=== PATIENT | female | born 1940 | race Caucasian/White ===

== ENCOUNTER 2021-03-31 18:40 | Emergency (ER) | payer OTHER ==
--- OUTSIDE RECORDS SUMMARY | 2021-03-31 18:43 | XMS REPORT | Continuity of Care Document ---
:1940 Author Organization [facility] t Address [address] [place] [id number] Care Team Providers Name Role Phone Elder KNOWLES Primary Care Physician Payers Payer Name Policy Type Policy Number Effective Date Expiration Date S ource Problems This patient has no known problems. Allergies, Adverse Reactions, Alerts Allergy Allergy Status Severity Reaction(s) Onset Inactive Treating Comm ents Source Name Type Date Date Clinician nisoldip DA Active U 2019-0 [facility] 00:00: [address] meperidi DA Active U 2019-0 [facility] ne 01-04 00:00: [address] nisoldip DA Active U 2014-0 [facility] 11-03 00:00: [address] meperidi DA Active U 2015-0 [facility] ne 11-03 00:00: [address] Social History Social Habit Start Date Stop Date Quantity Comments Source Sex Assigned At [birth year] [facility] ethodist 00:00:00 00:00:00 Medications This patient has no known medications. Procedures This patient has no known procedures. Plan of Care Planned Activity Planned Date Details Comments Source Future Scheduled 2021-05-23 INFLUENZA VACCINE Mary rubio [facility] 00:00:00 [code = INFLUENZA VACCINE] Future Scheduled 2007 65+ PNEUMOCOCCAL [facility] 00:00:00 VACCINE (1 of 1 - PPSV23) [code = 65+ PNEUMOCOCCAL VACCINE (1 of 1 - PPSV23)] Future Scheduled 1992 SHINGLES VACCINES (#1) Alyx negro [facility] 00:00:00 [code = SHINGLES VACCINES (#1)] Future Scheduled 1954 COVID-19 VACCINE (1) Sujata spence [facility] 00:00:00 [code = COVID-19 VACCINE (1)] Results Test Description Test Time Test Comments Results Result Comments Source - NM MYOCRD SPECT 2019-01-09 Patient Name: R/S MULT 11:01:00 DARLEEN BUCHANAN Unit No: [id number] EXAMS: CPT CODE: [id number] NM MYOCRD SPECT R/S MULT [id number] CLINICAL HISTORY: Bundle branch block. LOCATION: E5 COMPARISON: November 03, 2014 FINDINGS: A Lexiscan stress SPECT myocardial perfusion scan is performed with 10.75 mCi technetium 99m Cardiolite injected during rest and 30.2 mCi injected during stress. SPECT myocardial perfusion images demonstrate fixed mildly decreased activity involving the inferior medial wall without extension into the apex. Apical thinning is noted.. No reversibility is evident. Gated images demonstrate normal wall motion. Left ventricular ejection fraction is 66%. IMPRESSION: 1. No significant abnormalities. LVEF is 66% (previous LVEF was calculated as 50%). at 1101 Reported and signed by: Daniel Johnson MD CC: Salas Kohli Technologist: RT Radha(CA) Transcrpt Date/Tm/Trnsp: 01/09/2019 (1101) [id number] Orig Print D/T: S: 01/09/2019 (1104) [facility] NAME: DARLEEN BUCHANAN [address] [facility] [address] PHYS: [place] [address] : 1940 AGE: 78 SEX: F LOC: ZSimaZNUC PHONE #: [phone] EXAM DATE: 01/04/2019 STATUS: DEP CLI FAX #: [phone] RADIOLOGY NO: PAGE 1 Signed Report
[2021-03-31] MEDS ORDERED: NA CHLORIDE 0.9% 500 ML ONE (20:09)
--- NOTE | 2021-03-31 20:22 | RAD REPORT ---
EXAM DESCRIPTION: US - Extremity Nonvascular Limited - 03/31/2021 8:07 pm CLINICAL HISTORY: Pain;Swelling COMPARISON: URINARY BLADDER dated 02/01/2013; Wrist Right 3 View dated 03/09/2021; Hand Right 3 View d ated 03/09/2021 TECHNIQUE: Real-time sonographic evaluation of the area of interest was performed. FINDINGS: In the area of interest anterior/wrist region there is evidence of significant fluid withi n the tendon sheaths of the carpal tunnel and the other flexor tendons. This may indicate tenosynovit is. Followup nonemergent MR imaging of the wrist would be suggested.
[2021-03-31 20:44] LABS: Absolute Lymphocytes (CBC) 1.5 K/uL (0.7-4.9); Basophils % 0.4 % (0-1.3); Hematocrit 38.9 % (36.0-45.0); Lymphocytes % 20.3 % (15.3-44.8); MPV 9.3 fL (7.6-11.3); RBC Red Blood Cell Count 4.31 M/uL (3.86-4.86)
[2021-03-31 21:03] LABS: Potassium 4.1 mmol/L (3.5-5.1)
[2021-03-31] MEDS ORDERED: LIDOCAINE 1% W/EPI 1:100,000 MDV 20 ML VIAL ONE (21:10)
--- NOTE | 2021-03-31 21:15 | EDPHYS ---
Physician Documentation [facility] Name: Argenis Plata Age: 80 yrs Sex: Female : 1940 Arrival Date: 03/31/2021 Time: 18:43 Bed 20 Private MD: ED Physician Loi Clayton HPI: 03/31 19:43 This 80 yrs old Female presents to ER via Ambulatory with complaints of Hand alice Swelling. 19:43 The patient or guardian reports pain, swelling, tenderness. The complaints affect the alice right hand diffusely, dorsum of right hand. Context: The problem was sustained at an unknown location, resulted from an unknown cause. Onset: The symptoms/episode began/occurred 1 month(s) ago. Modifying factors: The symptoms are alleviated by elevation, holding still, ice/coldpack to affected area, the symptoms are aggravated by movement, dependent position. Associated signs and symptoms: The patient has no apparent associated signs or symptoms. Severity of symptoms: At their worst the symptoms were mild, moderate, in the emergency department the symptoms are unchanged. The patient has not experienced similar symptoms in the past. Historical: - Allergies: 18:49 Demerol; ak2 18:49 Sulfa (Sulfonamide Antibiotics); ak2 - PMHx: 21:53 RLS; lc1 - Immunization history:: Adult Immunizations up to date. - Social history:: Smoking status: unknown. - Family history:: not pertinent. ROS: 19:43 Constitutional: Negative for fever, chills, and weight loss, Eyes: Negative for injury, alice pain, redness, and discharge, ENT: Negative for injury, pain, and discharge, Neck: Negative for injury, pain, and swelling, Cardiovascular: Negative for chest pain, palpitations, and edema, Respiratory: Negative for shortness of breath, cough, wheezing, and pleuritic chest pain, Abdomen/GI: Negative for abdominal pain, nausea, vomiting, diarrhea, and constipation, Back: Negative for injury and pain, : Negative for injury, bleeding, discharge, and swelling, Skin: Negative for injury, rash, and discoloration, Neuro: Negative for headache, weakness, numbness, tingling, and seizure, Psych: Negative for depression, anxiety, suicide ideation, homicidal ideation, and hallucinations, Allergy/Immunology: Negative for hives, rash, and allergies, Endocrine: Negative for neck swelling, polydipsia, polyuria, polyphagia, and marked weight changes, Hematologic/Lymphatic: Negative for swollen nodes, abnormal bleeding, and unusual bruising. 19:43 MS/extremity: Positive for pain, swelling, tenderness, of the dorsum of right hand. Exam: 19:43 Constitutional: This is a well developed, well nourished patient who is awake, alert, alice and in no acute distress. Head/Face: Normocephalic, atraumatic. Eyes: Pupils equal round and reactive to light, extra-ocular motions intact. Lids and lashes normal. Conjunctiva and sclera are non-icteric and not injected. Cornea within normal limits. Periorbital areas with no swelling, redness, or edema. ENT: Nares patent. No nasal discharge, no septal abnormalities noted. Tympanic membranes are normal and external auditory canals are clear. Oropharynx with no redness, swelling, or masses, exudates, or evidence of obstruction, uvula midline. Mucous membranes moist. Neck: Trachea midline, no thyromegaly or masses palpated, and no cervical lymphadenopathy. Supple, full range of motion without nuchal rigidity, or vertebral point tenderness. No Meningismus. Chest/axilla: Normal chest wall appearance and motion. Nontender with no deformity. No lesions are appreciated. Cardiovascular: Regular rate and rhythm with a normal S1 and S2. No gallops, murmurs, or rubs. Normal PMI, no JVD. No pulse deficits. Respiratory: Lungs have equal breath sounds bilaterally, clear to auscultation and percussion. No rales, rhonchi or wheezes noted. No increased work of breathing, no retractions or nasal flaring. Abdomen/GI: Soft, non-tender, with normal bowel sounds. No distension or tympany. No guarding or rebound. No evidence of tenderness throughout. Back: No spinal tenderness. No costovertebral tenderness. Full range of motion. Female : Normal external genitalia. Skin: Warm, dry with normal turgor. Normal color with no rashes, no lesions, and no evidence of cellulitis. Neuro: Awake and alert, GCS 15, oriented to person, place, time, and situation. Cranial nerves II-XII grossly intact. Motor strength 5/5 in all extremities. Sensory grossly intact. Cerebellar exam normal. Normal gait. Psych: Awake, alert, with orientation to person, place and time. Behavior, mood, and affect are within normal limits. 19:43 Musculoskeletal/extremity: Circulation is intact in all extremities. Sensation intact. Compartment Syndrome exam of affected extremity: is normal. Vital Signs: 18:47 BP 167 / 57; Pulse 71; Resp 20; Temp 98.3; Pulse Ox 100% ; Weight 59.87 kg; Height 5 ak2 ft. 5 in. (165.10 cm); 20:30 BP 136 / 85; Pulse 63; Resp 18; Pulse Ox 100% on R/A; lc1 21:00 BP 161 / 68; Pulse 59; Resp 18; Pulse Ox 100% on R/A; lc1 18:47 Body Mass Index 21.97 (59.87 kg, 165.10 cm) ak2 Procedures: 20:40 Performed aspirationof a ganglion cyst, sterile prep, dressed, fluid sent to lab for [facility] appropriate studies. MDM: 18:59 Patient medically screened. jr8 19:53 Differential diagnosis: closed fracture, contusion, tendonitis. Data reviewed: vital alice signs, nurses notes, lab test result(s), radiologic studies, plain films, ultrasound. Data interpreted: ramp jockey: not applicable for this patient encounter. rate is 71 beats/min, rhythm is regular, Pulse oximetry: on room air is 100 %. Test interpretation: by ED physician or midlevel provider: plain radiologic studies. Counseling: I had a detailed discussion with the patient and/or guardian regarding: the historical points, exam findings, and any diagnostic results supporting the discharge/admit diagnosis, lab results, radiology results, the need for outpatient follow up, for definitive care, a hand specialist. 03/31 19:38 Order name: CBC with Diff; Complete Time: 20:46 [facility] 03/31 19:38 Order name: Chem 7 [facility] 03/31 20:51 Order name: Body Fluid Culture [facility] 03/31 20:51 Order name: Body Fluid Cell Count [facility] 03/31 20:51 Order name: Body Fluid Crystals [facility] 03/31 19:38 Order name: US Extrmty Nonvasular Limited; Complete Time: 20:46 [facility] 03/31 20:37 Order name: Dressing - Wound; Complete Time: 20:52 [facility] 03/31 20:37 Order name: Gloves, Sterile; Complete Time: 20:52 [facility] 03/31 20:37 Order name: Setup Suture Tray; Complete Time: 21:00 [facility] Administered Medications: 20:35 Drug: NS 0.9% 500 ml Route: IV; Rate: bolus; Site: left forearm; 1 21:33 Follow up: IV Status: Completed infusion; IV Intake: 500ml [facility] 20:51 Drug: Lidocaine-Epinephrine -1%: (1:100,000) 5 ml Volume: 20 ml; Route: Infiltration; [facility] 21:28 Drug: Doxycycline 200 mg Route: PO; 1 21:32 Follow up: Response: No adverse reaction [facility] 21:30 Drug: Ancef (cefazolin) 1 grams Route: IVPB; Site: left forearm; 1 21:37 Follow up: IV Status: Completed infusion [facility] Disposition: 03/31/21 21:14 Discharged to Home. Impression: Ganglion, right hand - infected/aspirated, Cellulitis and acute lymphangitis of other parts of limb. - Condition is Stable. - Discharge Instructions: Ganglion Cyst, Cellulitis, Adult, [id number]. - Prescriptions for Keflex 500 mg Oral Capsule - take 1 capsule by ORAL route every 6 hours for 10 days; 40 capsule. Doxycycline Hyclate 100 mg Oral Tablet - take 1 tablet by ORAL route every 12 hours; 20 tablet. Motrin IB 200 mg Oral Tablet - take 2 tablet by ORAL route every 6 hours As needed as needed with food; 30 tablet. - Medication Reconciliation Form, Thank You Letter, Antibiotic Education, Prescription Opioid Use form. - Follow up: Daniel Varela; When: 1 - 2 days; Reason: Recheck today's complaints, Continuance of care, Re-evaluation by your physician. - Problem is new. - Symptoms have improved. Signatures: Dispatcher [employer] EDMS Loi Clayton MD MD cha Calhoun, Lisa lc1 Leandro Duffy PA PA jr8 Malcaba, Joseph, RN RN jm8 Fredy Bolton2 Corrections: (The following items were deleted from the chart) 21:15 20:51 Gram Stain ordered. EDMS EDMS 21:54 21:14 03/31/2021 21:14 Discharged to Home. Impression: Ganglion, right hand - lc1 infected/aspirated; Cellulitis and acute lymphangitis of other parts of limb. Condition is Stable. Discharge Instructions: Ganglion Cyst, Cellulitis, Adult, [id number]. Prescriptions for Keflex 500 mg Oral Capsule - take 1 capsule by ORAL route every 6 hours for 10 days; 40 capsule, Doxycycline Hyclate 100 mg Oral Tablet - take 1 tablet by ORAL route every 12 hours; 20 tablet, Motrin IB 200 mg Oral Tablet - take 2 tablet by ORAL route every 6 hours As needed as needed with food; 30 tablet. and Forms are Medication Reconciliation Form, Thank You Letter, Antibiotic Education, Prescription Opioid Use. Follow up: Daniel Varela; When: 1 - 2 days; Reason: Recheck today's complaints, Continuance of care, Re-evaluation by your physician. Problem is new. Symptoms have improved. alice
--- NOTE | 2021-03-31 21:15 | ER ---
Nurse's Notes [facility] Name: Argenis Plata Age: 80 yrs Sex: Female : 1940 Arrival Date: 03/31/2021 Time: 18:43 Bed 20 Private MD: Diagnosis: Ganglion, right hand-infected/aspirated;Cellulitis and acute lymphangitis of other parts of limb Presentation: 03/31 18:47 Chief complaint: Patient states: R hand swelling x1 kim, no injury. Coronavirus ak2 screen: Client denies travel out of the [place] in the last 14 days. Ebola Screen: Patient negative for fever greater than or equal to 101.5 degrees Fahrenheit, and additional compatible Ebola Virus Disease symptoms Patient denies exposure to infectious person. Patient denies travel to an Ebola-affected area in the 21 days before illness onset. No symptoms or risks identified at this time. Initial Sepsis Screen: Does the patient meet any 2 criteria? No. Patient's initial sepsis screen is negative. Does the patient have a suspected source of infection? No. Patient's initial sepsis screen is negative. 18:47 Method Of Arrival: Ambulatory ak2 19:40 Acuity: MIHAI 3 em 20:23 Risk Assessment: Do you want to hurt yourself or someone else? Patient reports no lc1 desire to harm self or others. Onset of symptoms was February 2021. Triage Assessment: 18:49 General: Appears in no apparent distress. Behavior is calm, cooperative. Pain: Denies ak2 pain. Historical: - Allergies: 18:49 Demerol; ak2 18:49 Sulfa (Sulfonamide Antibiotics); ak2 - PMHx: 21:53 RLS; lc1 - Immunization history:: Adult Immunizations up to date. - Social history:: Smoking status: unknown. - Family history:: not pertinent. Screenin:52 Abuse screen: Denies threats or abuse. Nutritional screening: No deficits noted. lc1 Tuberculosis screening: No symptoms or risk factors identified. Fall Risk None identified. Assessment: 20:24 General: Appears in no apparent distress. comfortable, Behavior is calm, cooperative. lc1 Pain: Complains of pain in right hand and dorsum of right hand. Neuro: No deficits noted. Cardiovascular: No deficits noted. Respiratory: Airway is patent Trachea midline Respiratory effort is even, unlabored. GI: No signs and/or symptoms were reported involving the gastrointestinal system. : No signs and/or symptoms were reported regarding the genitourinary system. EENT: No signs and/or symptoms were reported regarding the EENT system. Derm: No signs and/or symptoms reported regarding the dermatologic system. Musculoskeletal: Reports pain in right hand and dorsum of right hand since 1 month ago, thinks its a DVT . 21:25 Reassessment: No changes from previously documented assessment. Patient and/or family lc1 updated on plan of care and expected duration. Pain level reassessed. Patient is alert, oriented x 3, equal unlabored respirations, skin warm/dry/pink. ice pack provided. Vital Signs: 18:47 BP 167 / 57; Pulse 71; Resp 20; Temp 98.3; Pulse Ox 100% ; Weight 59.87 kg; Height 5 ak2 ft. 5 in. (165.10 cm); 20:30 BP 136 / 85; Pulse 63; Resp 18; Pulse Ox 100% on R/A; lc1 21:00 BP 161 / 68; Pulse 59; Resp 18; Pulse Ox 100% on R/A; lc1 18:47 Body Mass Index 21.97 (59.87 kg, 165.10 cm) ak2 ED Course: 18:43 Patient arrived in ED. ds1 18:58 Leandro Duffy PA is PHCP. jr8 18:58 Berto Sharp MD is Attending Physician. jr8 19:15 Attending Physician role handed off by Berto Sharp MD alice 19:15 Loi Clayton MD is Attending Physician. alice 19:40 Triage completed. em 19:44 Amarilys Malcolm is Primary Nurse. lc1 20:00 Patient has correct armband on for positive identification. Bed in low position. Call lc1 light in reach. Pulse ox on. NIBP on. Door closed. Noise minimized. 20:07 US Extrmty Nonvasular Limited In Process Unspecified. EDMS 20:32 Inserted saline lock: 20 gauge in right antecubital area, using aseptic technique. dh4 Blood collected. 20:[address] clayton with aspiration of cyst. lc1 21:14 Daniel Varela MD is Referral Physician. alice 21:51 IV discontinued, intact, bleeding controlled, Pressure dressing applied. lc1 21:53 Patient ice pack given. lc1 Administered Medications: 20:35 Drug: NS 0.9% 500 ml Route: IV; Rate: bolus; Site: left forearm; lc1 21:33 Follow up: IV Status: Completed infusion; IV Intake: 500ml 1 20:51 Drug: Lidocaine-Epinephrine -1%: (1:100,000) 5 ml Volume: 20 ml; Route: Infiltration; 8 21:28 Drug: Doxycycline 200 mg Route: PO; 1 21:32 Follow up: Response: No adverse reaction lc1 21:30 Drug: Ancef (cefazolin) 1 grams Route: IVPB; Site: left forearm; lc1 21:37 Follow up: IV Status: Completed infusion lc1 Intake: 21:33 IV: 500ml; Total: 500ml. 1 Outcome: 20:50 Discharged to home ambulatory, with family. 1 20:50 Condition: improved 20:50 Discharge instructions given to patient, Instructed on discharge instructions, follow up and referral plans. Demonstrated understanding of instructions, follow-up care, medications, Prescriptions given X 3. 21:14 Discharge ordered by . alice 21:54 Patient left the ED. 1 Signatures: Dispatcher [employer] Loi Segura MD MD cha Munoz, Edgar RN Jazmín Munguia1 Amarilys Malcolm 1 Leandro Duffy PA PA jr8 Huhn, Donald 4 Jayce Redd RN RN jm8 Fredy Bolton pr2 Corrections: (The following items were deleted from the chart) 21:34 21:25 Reassessment: No changes from previously documented assessment. Patient and/or lc1 family updated on plan of care and expected duration. Pain level reassessed. Patient is alert, oriented x 3, equal unlabored respirations, skin warm/dry/pink. 1 21:52 21:[address] clayton with aspiration of cyst lc1 lc1
[2021-03-31] MEDS ORDERED: DOXYCYCLINE 100 MG CAP PO ONE (21:44)
[2021-03-31] MEDS ORDERED: CEFAZOLIN/SWI 1gm 1 GM/10 ML SYR ONE (21:45)
[2021-03-31 21:58] VITALS: TEMP 98.3; O2SAT 100
[2021-03-31 22:02] VITALS: BP 161/68
[2021-03-31 22:39] LABS: Body Fluid Source SYNOVIAL
[2021-03-31 22:40] LABS: Appearance TURBID (CLEAR); Body Fluid WBC 25930 /mm^3; Color of fluid Orange (COLORLESS)
== END 2021-03-31 21:54 | disposition home or self-care (01) ==
LOC: ER 18:40
PROC: 0L9 Tendons, Drainage (ICD-10-PCS; principal; 2021-03-31)
DX: M67.441 Ganglion, right hand (principal); L03.113 Cellulitis of right upper limb; Z88.2 Allergy status to sulfonamides; Z88.5 Allergy status to narcotic agent
CPT/HCPCS: 87070; 85025; 80048; 36415; 89050; 89060; 76882; 20612; J0690; J7040; 96361; 96374; 99284

== ENCOUNTER 2021-04-23 14:19 | Emergency (ER) | payer OTHER ==
--- OUTSIDE RECORDS SUMMARY | 2021-04-23 14:32 | XMS REPORT | Continuity of Care Document ---
:[address] [facility] t Address [address] [place] [address] Care Team Providers Name Role Phone Elder KNOWLES Primary Care Physician Payers Payer Name Policy Type Policy Number Effective Date Expiration Date S ource Problems This patient has no known problems. Allergies, Adverse Reactions, Alerts Allergy Allergy Status Severity Reaction(s) Onset Inactive Treating Comm ents Source Name Type Date Date Clinician nisoldip DA Active U 2019-0 [facility] 01-04 [facility]: [address] meperidi DA Active U 2019-0 [facility] 01-04 00:00: [address] nisoldip DA Active U 2014-0 [facility] 11-03 00:00: [address] meperidi DA Active U 2015-0 [facility] 11-03 00:00: [address] Social History Social Habit Start Date Stop Date Quantity Comments Source Sex Assigned At [birth year] [facility] ethodist 00:00:00 00:00:00 Medications This patient has no known medications. Procedures This patient has no known procedures. Plan of Care Planned Activity Planned Date Details Comments Source Future Scheduled 2021-05-23 INFLUENZA VACCINE Mary rubio [facility] 00:00:00 [code = INFLUENZA VACCINE] Future Scheduled 2007 65+ PNEUMOCOCCAL [place] [facility] Test 00:00:00 VACCINE (1 of 1 - PPSV23) [code = 65+ PNEUMOCOCCAL VACCINE (1 of 1 - PPSV23)] Future Scheduled 1992 SHINGLES VACCINES (#1) Alyx negro [facility] Test 00:00:00 [code = SHINGLES VACCINES (#1)] Future Scheduled 1954 COVID-19 VACCINE (1) Sujata spence [facility] 00:00:00 [code = COVID-19 VACCINE (1)] Results Test Description Test Time Test Comments Results Result Comments Source - NM MYOCRD SPECT 2019-01-09 Patient Name: R/S MULT 11:01:00 DARLEEN BUCHANAN Unit No: [id number] EXAMS: CPT CODE: [id number] NM MYOCRD SPECT R/S MULT [id number] CLINICAL HISTORY: Bundle branch block. LOCATION: E5 [...] Johnson MD CC: Salas Kohli Technologist: RT Radha(ID) Transcrpt Date/Tm/Trnsp: 01/09/2019 (1101) [id number] Orig Print D/T: S: 01/09/2019 (1104) [facility] NAME: DARLEEN BUCHANAN [address] [facility] [address] PHYS: [place] [address] : 1940 AGE: 78 SEX: F LOC: ZSimaZNUC PHONE #: [phone] EXAM DATE: 01/04/2019 STATUS: DEP CLI FAX #: [phone] RADIOLOGY NO: PAGE 1 Signed Report
[2021-04-23 15:09] LABS: Absolute Lymphocytes (CBC) 1.3 K/uL (0.7-4.9); Basophils % 0.6 % (0-1.3); Hematocrit 38.9 % (36.0-45.0); Lymphocytes % 15.6 % (15.3-44.8); MPV 9.7 fL (7.6-11.3)
[2021-04-23 15:22] LABS: Albumin 3.8 g/dL (3.4-5.0); Bilirubin Direct 0.1 mg/dL (0-0.2); Bilirubin Total 0.6 mg/dL (0.2-1.0); Protein, Total 7.5 g/dL (6.4-8.2)
--- NOTE | 2021-04-23 16:13 | RAD REPORT ---
EXAM DESCRIPTION: CT - Abdomen Pelvis Wo Contrast - 04/23/2021 3:36 pm CLINICAL HISTORY: Abdominal pain COMPARISON: 2011 TECHNIQUE: Computed axial tomography of the abdomen and pelvis was obtained. IV and oral contrast we re not requested. All CT scans are performed using dose optimization technique as appropriate and may include automated exposure control or mA/KV adjustment according to patient size. FINDINGS: The evaluation of solid organs, vessels and bowel is limited secondary to the lack of con trast administration. Tiny calculus is present within each kidney. No hydronephrosis. Subcentimeter low-density areas within the liver. These are nonspecific but probably benign Spleen, pancreas and adrenals are grossly normal. Moderate amount of stool is present throughout the colon. There is no evidence of diverticulitis. Sma ll ventral hernia IMPRESSION: Moderate amount of stool present throughout the colon Tiny nonobstructing renal calculi
--- NOTE | 2021-04-23 16:48 | EDPHYS ---
Physician Documentation [facility] Name: Argenis Plata Age: 80 yrs Sex: Female : 1940 Arrival Date: 04/23/2021 Time: 14:21 Bed 19 Private MD: ED Physician Levi Camilo HPI: 04/23 18:32 This 80 yrs old Female presents to ER via Ambulatory with complaints of XRAY kdr AND BLOOD WORK. 18:32 The patient presents with abdominal pain Let flank radiating to right side. Onset: The kdr symptoms/episode began/occurred gradually, The patient reports that she had fried food on Monday night and since then has had abdominal pain that began on the left and has spread to the right side. The pain is primarily when she moves at this time but has been intermittent since onset on Monday. The symptoms radiate to the right flank. Associated signs and symptoms: Pertinent positives: nausea. The symptoms are described as achy, crampy, intermittent, vague. Modifying factors: The symptoms are alleviated by nothing, the symptoms are aggravated by movement. Severity of pain: At its worst the pain was mild moderate just prior to arrival, in the emergency department the pain is unchanged. The patient has not experienced similar symptoms in the past. The patient has not recently seen a physician. Historical: - Allergies: 14:40 Sulfa (Sulfonamide Antibiotics); ll1 14:40 Demerol; ll1 15:30 Iodinated Contrast Media - IV Dye; jd3 - PMHx: 14:40 RLS; ll1 - PSHx: 14:40 hysterectomy/tonsil; ll1 - Immunization history:: Client reports receiving the 1st dose of the Covid vaccine, Flu vaccine is not up to date. - Social history:: Smoking status: Patient denies any tobacco usage or history of. ROS: 18:32 Constitutional: Negative for fever, chills, and weight loss, Eyes: Negative for injury, kdr pain, redness, and discharge, ENT: Negative for injury, pain, and discharge, Neck: Negative for injury, pain, and swelling, Cardiovascular: Negative for chest pain, palpitations, and edema, Respiratory: Negative for shortness of breath, cough, wheezing, and pleuritic chest pain, Back: Negative for injury and pain, : Negative for injury, bleeding, discharge, and swelling, MS/Extremity: Negative for injury and deformity, Skin: Negative for injury, rash, and discoloration, Neuro: Negative for headache, weakness, numbness, tingling, and seizure activity. Psych: Negative for depression, anxiety, suicide ideation, homicidal ideation, and hallucinations, Allergy/Immunology: Negative for hives, rash, and allergies, Endocrine: Negative for neck swelling, polydipsia, polyuria, polyphagia, and marked weight changes, Hematologic/Lymphatic: Negative for swollen nodes, abnormal bleeding, and unusual bruising. 18:32 Abdomen/GI: Positive for abdominal pain, nausea, constipation, abdominal cramps. Exam: 18:32 Constitutional: This is a well developed, well nourished patient who is awake, alert, kdr and in no acute distress. Head/Face: Normocephalic, atraumatic. Eyes: Pupils equal round and reactive to light, extra-ocular motions intact. Lids and lashes normal. Conjunctiva and sclera are non-icteric and not injected. Cornea within normal limits. Periorbital areas with no swelling, redness, or edema. Neck: Trachea midline, no thyromegaly or masses palpated, and no cervical lymphadenopathy. Supple, full range of motion without nuchal rigidity, or vertebral point tenderness. No Meningismus. Chest/axilla: Normal chest wall appearance and motion. Nontender with no deformity. No lesions are appreciated. Cardiovascular: Regular rate and rhythm with a normal S1 and S2. No gallops, murmurs, or rubs. Normal PMI, no JVD. No pulse deficits. Respiratory: Lungs have equal breath sounds bilaterally, clear to auscultation and percussion. No rales, rhonchi or wheezes noted. No increased work of breathing, no retractions or nasal flaring. Abdomen/GI: Soft, non-tender, with normal bowel sounds. No distension or tympany. No guarding or rebound. No evidence of tenderness throughout. Back: No spinal tenderness. No costovertebral tenderness. Full range of motion. Skin: Warm, dry with normal turgor. Normal color with no rashes, no lesions, and no evidence of cellulitis. MS/ Extremity: Pulses equal, no cyanosis. Neurovascular intact. Full, normal range of motion. Neuro: Awake and alert, GCS 15, oriented to person, place, time, and situation. Cranial nerves II-XII grossly intact. Motor strength 5/5 in all extremities. Sensory grossly intact. Cerebellar exam normal. Normal gait. Psych: Awake, alert, with orientation to person, place and time. Behavior, mood, and affect are within normal limits. Vital Signs: 14:38 BP 148 / 90; Pulse 72; Resp 17; Temp 98.2; Pulse Ox 100% ; Weight 59.87 kg; Height 5 ll1 ft. 5 in. (165.10 cm); Pain 6/10; 17:03 Pulse 74; Resp 19 S; Pulse Ox 98% on R/A; jd3 14:38 Body Mass Index 21.97 (59.87 kg, 165.10 cm) ll1 MDM: 16:47 Patient medically screened. kdr 18:32 Data reviewed: vital signs, nurses notes, lab test result(s), radiologic studies. kdr Counseling: I had a detailed discussion with the patient and/or guardian regarding: the historical points, exam findings, and any diagnostic results supporting the discharge/admit diagnosis, lab results, radiology results, the need for outpatient follow up. Physician consultation: Francesco Friedman MD regarding consult, patient's condition, outpatient follow-up, and will see patient in office, next week. 18:38 Response to treatment: the patient's symptoms have mildly improved after treatment, kdr patient is well hydrated. Special discussion: Based on the patient's Hx, exam, and Dx evaluation, there is no indication for emergent surgery or inpatient Tx. It is understood by the patient/guardian that if the Sx's persist or worsen they need to return immediately for re-evaluation. I discussed with the patient/guardian in detail that at this point there is no indication for admission to the hospital. It is understood, however, that if the symptoms persist or worsen the patient needs to return immediately for re-evaluation. 04/23 14:46 Order name: Basic Metabolic Panel [facility] 04/23 14:46 Order name: CBC with Diff kdr 04/23 14:46 Order name: Hepatic Function kdr 04/23 14:46 Order name: Lipase kdr 04/23 14:47 Order name: Basic Metabolic Panel; Complete Time: 16:00 EDMS 04/23 14:47 Order name: Liver (Hepatic) Function; Complete Time: 16:00 EDMS 04/23 14:46 Order name: IV Saline Lock; Complete Time: 14:57 kdr 04/23 14:46 Order name: Labs collected and sent; Complete Time: 14:57 kdr 04/23 14:47 Order name: CBC with Automated Diff; Complete Time: 16:00 EDMS 04/23 14:47 Order name: Lipase; Complete Time: 16:00 EDMS 04/23 15:32 Order name: Abdomen ; Complete Time: 16:33 EDMS 04/23 16:34 Order name: Urine Dipstick-Ancillary (obtain specimen); Complete Time: 16:49 kdr 04/23 16:49 Order name: Urine Dipstick-Ancillary; Complete Time: 16:51 EDMS Administered Medications: No medications were administered Disposition Summary: 04/23/21 16:47 Discharge Ordered Location: Home kdr Problem: new kdr Symptoms: are unchanged kdr Condition: Stable kdr Diagnosis - Abdominal pain, Generalized kdr - Constipation kdr Followup: kdr - With: Francesco Friedman MD - When: 2 - 3 days - Reason: If symptoms return, Further diagnostic work-up, Recheck today's complaints, Continuance of care, Re-evaluation by your physician Discharge Instructions: - Discharge Summary Sheet kdr - Constipation, Adult, [id number] kdr - Abdominal Pain, Adult, [id number] kdr Forms: - Medication Reconciliation Form kdr - Thank You Letter kdr Prescriptions: - Dulcolax (bisacodyl) 5 mg Oral tablet,delayed release (DR/EC) - take 2 tablet by ORAL route once daily; 20 tablet; Refills: 0, Product kdr Selection Permitted Signatures: Dispatcher [employer] [facility] Levi Camilo MD MD kdr Terrance Tse RN RN jd3 Giovani Mata RN RN ll1 Corrections: (The following items were deleted from the chart) 15:32 14:47 Abdomen Pelvis W Con+CT.RAD.BRZ ordered. EDWI EDWI
--- NOTE | 2021-04-23 16:48 | ER ---
Nurse's Notes [facility] Name: Argenis Plata Age: 80 yrs Sex: Female : 1940 Arrival Date: 04/23/2021 Time: 14:21 Bed 19 Private MD: Diagnosis: Abdominal pain, Generalized;Constipation Presentation: 04/23 14:38 Chief complaint: Patient states: L flank pain since Monday night with chills and ll1 nausea. R flank started hurting last night. Coronavirus screen: Client denies travel out of the [place] in the last 14 days. At this time, the client does not indicate any symptoms associated with coronavirus-19. Ebola Screen: Patient denies travel to an Ebola-affected area in the 21 days before illness onset. Initial Sepsis Screen: Does the patient meet any 2 criteria? No. Patient's initial sepsis screen is negative. Does the patient have a suspected source of infection? Yes: Acute abdominal pain. Risk Assessment: Do you want to hurt yourself or someone else? Patient reports no desire to harm self or others. Onset of symptoms was April 19, 2021. 14:38 Method Of Arrival: Ambulatory ll1 14:38 Acuity: MIHAI 3 ll1 Historical: - Allergies: 14:40 Sulfa (Sulfonamide Antibiotics); ll1 14:40 Demerol; ll1 15:30 Iodinated Contrast Media - IV Dye; jd3 - PMHx: 14:40 RLS; ll1 - PSHx: 14:40 hysterectomy/tonsil; ll1 - Immunization history:: Client reports receiving the 1st dose of the Covid vaccine, Flu vaccine is not up to date. - Social history:: Smoking status: Patient denies any tobacco usage or history of. Screenin:09 Abuse screen: Denies threats or abuse. Nutritional screening: No deficits noted. jd3 Tuberculosis screening: No symptoms or risk factors identified. Fall Risk IV access (20 points). Ambulatory Aid- None/Bed Rest/Nurse Assist (0 pts). Gait- Normal/Bed Rest/Wheelchair (0 pts) Mental Status- Oriented to own ability (0 pts). Total Zheng Fall Scale indicates No Risk (0-24 pts). Assessment: 15:07 General: Appears in no apparent distress. comfortable, Behavior is calm, cooperative, jd3 appropriate for age. Pain: Complains of pain in left flank and right flank Quality of pain is described as aching, crampy. Neuro: Level of Consciousness is awake, alert, obeys commands, Oriented to person, place, time, situation. Cardiovascular: Denies chest pain, Capillary refill < 3 seconds Patient's skin is warm and dry. Respiratory: Airway is patent Respiratory effort is even, unlabored, Respiratory pattern is regular, symmetrical, Denies cough, shortness of breath. GI: Abdomen is flat, distended, Abd is soft and non tender X 4 quads. Reports nausea, Patient currently denies diarrhea, vomiting. : Reports pain in right in left flank(s), Denies burning with urination, urinary frequency. EENT: No signs and/or symptoms were reported regarding the EENT system. Derm: Skin is intact, Skin is dry, Skin is normal, Skin temperature is warm. Musculoskeletal: Circulation, motion, and sensation intact. Range of motion: intact in all extremities. 16:13 Reassessment: Patient appears in no apparent distress at this time. No changes from jd3 previously documented assessment. Patient and/or family updated on plan of care and expected duration. Pain level reassessed. Patient is alert, oriented x 3, equal unlabored respirations, skin warm/dry/pink. Vital Signs: 14:38 BP 148 / 90; Pulse 72; Resp 17; Temp 98.2; Pulse Ox 100% ; Weight 59.87 kg; Height 5 ll1 ft. 5 in. (165.10 cm); Pain 6/10; 17:03 Pulse 74; Resp 19 S; Pulse Ox 98% on R/A; jd3 14:38 Body Mass Index 21.97 (59.87 kg, 165.10 cm) ll1 ED Course: 14:21 Patient arrived in ED. wm 14:40 Triage completed. ll1 14:40 Arm band placed on Patient placed in an exam room, on a stretcher. ll1 14:46 Levi Camilo MD is Attending Physician. kdr 14:56 Terrance Tse RN is Primary Nurse. jd3 14:57 Initial lab(s) drawn, by sc, sent to lab. Inserted saline lock: 22 gauge in right iw antecubital area, using aseptic technique. Blood collected. 15:09 Patient has correct armband on for positive identification. Bed in low position. Call jd3 light in reach. Side rails up X 1. Adult w/ patient. Pulse ox on. NIBP on. 15:36 Abdomen In Process Unspecified. EDMS 16:45 Francesco Friedman MD is Referral Physician. kdr 17:02 No provider procedures requiring assistance completed. IV discontinued, intact, jd3 bleeding controlled, No redness/swelling at site. Pressure dressing applied. Administered Medications: No medications were administered Outcome: 16:47 Discharge ordered by . kdr 17:02 Discharged to home ambulatory, with family. jd3 17:02 Condition: stable 17:02 Discharge instructions given to patient, Instructed on discharge instructions, follow up and referral plans. medication usage, Demonstrated understanding of instructions, follow-up care, medications, Prescriptions given X 1. 17:03 Patient left the ED. jd3 Signatures: Dispatcher [employer] EDMS Levi Camilo MD MD kdr Phylicia Butler, RN Terrance Owen RN RN [id number] Giovani Mata RN RN ll1 Evelin Astudillo
[2021-04-23 16:49] LABS: Urine Blood 1+ (Negative); Urine Glucose Negative (Negative); Urine Protein Negative (Negative)
[2021-04-23 17:21] VITALS: BP 148/90; TEMP 98.2
[2021-04-23 17:23] VITALS: O2SAT 98
== END 2021-04-23 17:03 | disposition home or self-care (01) ==
LOC: ER 14:19
DX: K59.00 Constipation, unspecified (principal); Z88.2 Allergy status to sulfonamides; Z88.5 Allergy status to narcotic agent; Z91.041 Radiographic dye allergy status
CPT/HCPCS: 36415; 74176; 80048; 80076; 81003; 83690; 85025; 99284

== ENCOUNTER 2023-05-02 22:44 | Emergency (ER) | payer OTHER ==
--- OUTSIDE RECORDS SUMMARY | 2023-05-02 22:48 | XMS REPORT | Continuity of Care Document ---
:1940 Author Organization [facility] t Address [address] [place] [address] [address] [place] [address] Care Team Providers Name Role Phone Francesco Friedman MD Primary Care Physician Chan Attending Clinician Unavailable Malou Attending Clinician Unavailable Salas Kohli Attending Clinician Unavailable Chan Admitting Clinician Unavailable Malou Admitting Clinician Unavailable Salas Kohli Admitting Clinician Unavailable Physician, No Primary or Family Admitting Clinician Unavaila ble Payers Payer Name Policy Type Policy Number Effective Date Expiration Date Chiquis LYNCH (MEDICARE [id number] 2022 REPLACEMENT PPO) 00:00:00 Problems Condition Condition Condition Status Onset Resolution Last Treating Co mments Source Name Details Category Date Date Treatment Clinician Date Osteoporos Osteoporos Problem Active A zalea is is 4-12 Orthope 00:00: dic 00 Sports Medicin e Closed Closed Problem Active Latricia fracture Fracture 4-12 Orthop e lumbar Lumbar 00:00: dic vertebra, Vertebra, 00 Spor ts wedge Wedge Medicin e 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 Scoliosis 00:00: dic of of 00 Sports thoracolum Thoracolum Me dicin bar spine bar Spine e Degenerati Degenerati Problem Active A cory on of on of 4-12 Orthope lumbar Lumbar 00:00: dic interverte Interverte 00 Sp orts bral disc bral Disc Medi timbo e Pain in Pain in Problem Active Latricia lumbar Lumbar 4-12 Orthope spine Spine 00:00: dic 00 Sports Medicin e Allergies, Adverse Reactions, Alerts Allergy Allergy Status Severity Reaction(s) Onset Inactive Treating Comm ents Source Name Type Date Date Clinician kyung DA [facility] 00:[facility]: [address] meperidi DA Active [facility] ne 315 00:00: [address] nisoldip DA Active U dont know [facility] 3-15 00:00: [address] meperidi DA Active U dont know [facility] ne 3 00:00: [address] DA [facility] 1- 00:00: [address] meperidi DA Active [facility] ne 11-03 00:00: [address] Social History Social Habit Start Date Stop Date Quantity Comments Source Gender identity [facility] Sexual orientation Method [facility] Sex Assigned At [birth year] [facility] 00:00:00 00:00:00 Smoking Status Start Date Stop Date Source Never Smoker [facility] Tobacco smoking consumption [facility] unknown Medications Ordered Filled Start Stop Current Ordering Indication Dosage Frequency Signature Comments Components Source Medication Medication Date Date Medication? Clinician (SIG) Name Name amlodipine amlodipine No amlodipine Latricia 5 mg tablet 5 mg tablet 5 mg O rthope TAKE 1 TAKE 1 tablet dic TABLET BY TABLET BY TAKE 1 Spo rts MOUTH EVERY MOUTH EVERY TABLET BY Medicin DAY FOR 90 DAY FOR 90 MOUTH e DAYS DAYS EVERY DAY FOR 90 DAYS bisoprolol bisoprolol No bisoprolol Latricia fumarate 5 fumarate 5 fumarate 5 Orthope mg tablet mg tablet mg tablet dic TAKE 1 TAKE 1 TAKE 1 Sports TABLET BY TABLET BY TABLET BY Medicin MOUTH EVERY MOUTH EVERY MOUTH e DAY FOR 90 DAY FOR 90 EVERY DAY DAYS DAYS FOR 90 DAYS carvedilol carvedilol No carvedilol Latricia 3.125 mg 3.125 mg 3.125 mg Ort hope tablet TAKE tablet TAKE tablet dic 1 TABLET BY 1 TABLET BY TAKE 1 Sports MOUTH TWICE MOUTH TWICE TABLET BY Medicin A DAY WITH A DAY WITH MOUTH e FOOD FOR 30 FOOD FOR 30 TWICE A DAYS DAYS DAY WITH FOOD FOR 30 DAYS furosemide furosemide No furosemide Latricia 40 mg 40 mg 40 mg Orthope tablet TAKE tablet TAKE tablet dic 1 TABLET BY 1 TABLET BY TAKE 1 Sports MOUTH EVERY MOUTH EVERY TABLET BY Medicin DAY FOR 30 DAY FOR 30 MOUTH e DAYS DAYS EVERY DAY FOR 30 DAYS losartan 25 losartan 25 No losartan Latricia mg tablet mg tablet 25 mg Orth ope TAKE 1 TAKE 1 tablet dic TABLET BY TABLET BY TAKE 1 Spo rts MOUTH EVERY MOUTH EVERY TABLET BY Medicin DAY FOR 90 DAY FOR 90 MOUTH e DAYS DAYS EVERY DAY FOR 90 DAYS nitroglycer nitroglycer No nitroglyce Latricia in 0.4 mg in 0.4 mg rin 0.4 mg Orthope sublingual sublingual sublingual dic tablet TAKE tablet TAKE tablet Sports 1 TAB(S) 1 TAB(S) TAKE 1 Medic in SUBLINGUAL SUBLINGUAL TAB(S) e EVERY 5 EVERY 5 SUBLINGUAL MINUTES UP MINUTES UP EVERY 5 TO 3 TIMES TO 3 TIMES MINUTES UP NEEDED NEEDED TO 3 TIMES NEEDED potassium potassium No potassium Latricia chloride ER chloride ER chloride Orthope 20 mEq 20 mEq ER 20 mEq dic tablet,exte tablet,exte tablet,ext Sports nded nded ended Medicin release release release e TAKE 1 TAKE 1 TAKE 1 TABLET BY TABLET BY TABLET BY MOUTH EVERY MOUTH EVERY MOUTH DAY WITH DAY WITH EVERY DAY FOOD FOR 30 FOOD FOR 30 WITH FOOD DAYS DAYS FOR 30 DAYS prednisolon prednisolon No prednisolo Latricia e acetate 1 e acetate 1 ne acetate Orthope % eye % eye 1 % eye dic drops,suspe drops,suspe drops,susp Sports nsion PLACE nsion PLACE ension Medicin 1 DROP IN [address] 1 e LEFT EYE LEFT EYE DROP IN FOUR TIMES FOUR TIMES LEFT EYE A DAY A DAY FOUR TIMES STARTING STARTING A DAY THE DAY THE DAY STARTING AFTER AFTER THE DAY SURGERY SURGERY AFTER SURGERY Prolensa Prolensa No Prolensa Aza teresita 0.07 % eye 0.07 % eye 0.07 % eye Orthope drops drops drops dic PLEASE SEE PLEASE SEE PLEASE SEE Sports ATTACHED ATTACHED ATTACHED Med icin FOR FOR FOR e DETAILED DETAILED DETAILED DIRECTIONS DIRECTIONS DIRECTIONS ropinirole ropinirole No ropinirole Latricia 1 mg tablet 1 mg tablet 1 mg O rthope TAKE 1 TAKE 1 tablet dic TABLET BY TABLET BY TAKE 1 Spo rts MOUTH THREE MOUTH THREE TABLET BY Medicin TIMES A DAY TIMES A DAY MOUTH e THREE TIMES A DAY ropinirole ropinirole No ropinirole Latricia 3 mg tablet 3 mg tablet 3 mg O rthope TAKE 2 TAKE 2 tablet dic TABLETS BY TABLETS BY TAKE 2 S ports MOUTH AT MOUTH AT TABLETS BY M edicin BEDTIME BEDTIME MOUTH AT e BEDTIME tobramycin tobramycin No tobramycin Latricia 0.3 % eye 0.3 % eye 0.3 % eye Orthope drops PLACE drops PLACE drops dic ONE DROP ONE DROP PLACE ONE Sp orts TWICE A DAY TWICE A DAY DROP TWICE Medicin IN LEFT EYE IN LEFT EYE A DAY IN e STARTING STARTING LEFT EYE DAY BEFORE DAY BEFORE STARTING SURGERY SURGERY DAY BEFORE SURGERY tramadol 50 tramadol 50 No tramadol Latricia mg tablet mg tablet 50 mg Orth ope TAKE 1 TAKE 1 tablet dic TABLET BY TABLET BY TAKE 1 Spo rts MOUTH EVERY MOUTH EVERY TABLET BY Medicin 6 TO 8 6 TO 8 MOUTH e HOURS HOURS EVERY 6 TO NEEDED NEEDED 8 HOURS NEEDED amlodipine amlodipine No amlodipine Latricia 5 mg tablet 5 mg tablet 5 mg O rthope TAKE 1 TAKE 1 tablet dic TABLET BY TABLET BY TAKE 1 Spo rts MOUTH EVERY MOUTH EVERY TABLET BY Medicin DAY FOR 90 DAY FOR 90 MOUTH e DAYS DAYS EVERY DAY FOR 90 DAYS bisoprolol bisoprolol No bisoprolol Latricia fumarate 5 fumarate 5 fumarate 5 Orthope mg tablet mg tablet mg tablet dic TAKE 1 TAKE 1 TAKE 1 Sports TABLET BY TABLET BY TABLET BY Medicin MOUTH EVERY MOUTH EVERY MOUTH e DAY FOR 90 DAY FOR 90 EVERY DAY DAYS DAYS FOR 90 DAYS carvedilol carvedilol No carvedilol Latricia 3.125 mg 3.125 mg 3.125 mg Ort hope tablet TAKE tablet TAKE tablet dic 1 TABLET BY 1 TABLET BY TAKE 1 Sports MOUTH TWICE MOUTH TWICE TABLET BY Medicin A DAY WITH A DAY WITH MOUTH e FOOD FOR 30 FOOD FOR 30 TWICE A DAYS DAYS DAY WITH FOOD FOR 30 DAYS COVID-19 COVID-19 No COVID-19 Aza teresita At-Home At-Home At-Home Orthop e Test kit Test kit Test kit dic USE USE USE Sports DIRECTED DIRECTED DIRECTED Med icin e furosemide furosemide No furosemide Latricia 40 mg 40 mg 40 mg Orthope tablet TAKE tablet TAKE tablet dic 1 TABLET BY 1 TABLET BY TAKE 1 Sports MOUTH EVERY MOUTH EVERY TABLET BY Medicin DAY FOR 30 DAY FOR 30 MOUTH e DAYS DAYS EVERY DAY FOR 30 DAYS losartan 25 losartan 25 No losartan Latricia mg tablet mg tablet 25 mg Orth ope TAKE 1 TAKE 1 tablet dic TABLET BY TABLET BY TAKE 1 Spo rts MOUTH EVERY MOUTH EVERY TABLET BY Medicin DAY FOR 90 DAY FOR 90 MOUTH e DAYS DAYS EVERY DAY FOR 90 DAYS nitroglycer nitroglycer No nitroglyce Latricia in 0.4 mg in 0.4 mg rin 0.4 mg Orthope sublingual sublingual sublingual dic tablet TAKE tablet TAKE tablet Sports 1 TAB(S) 1 TAB(S) TAKE 1 Medic in SUBLINGUAL SUBLINGUAL TAB(S) e EVERY 5 EVERY 5 SUBLINGUAL MINUTES UP MINUTES UP EVERY 5 TO 3 TIMES TO 3 TIMES MINUTES UP NEEDED NEEDED TO 3 TIMES NEEDED potassium potassium No potassium Latricia chloride ER chloride ER chloride Orthope 20 mEq 20 mEq ER 20 mEq dic tablet,exte tablet,exte tablet,ext Sports nded nded ended Medicin release release release e TAKE 1 TAKE 1 TAKE 1 TABLET BY TABLET BY TABLET BY MOUTH EVERY MOUTH EVERY MOUTH DAY WITH DAY WITH EVERY DAY FOOD FOR 90 FOOD FOR 90 WITH FOOD DAYS DAYS FOR 90 DAYS prednisolon prednisolon No prednisolo Latricia e acetate 1 e acetate 1 ne acetate Orthope % eye % eye 1 % eye dic drops,suspe drops,suspe drops,susp Sports nsion PLACE nsion PLACE ension Medicin 1 DROP IN [address] 1 e LEFT EYE LEFT EYE DROP IN FOUR TIMES FOUR TIMES LEFT EYE A DAY A DAY FOUR TIMES STARTING STARTING A DAY THE DAY THE DAY STARTING AFTER AFTER THE DAY SURGERY SURGERY AFTER SURGERY Prolensa Prolensa No Prolensa Aza teresita 0.07 % eye 0.07 % eye 0.07 % eye Orthope drops drops drops dic PLEASE SEE PLEASE SEE PLEASE SEE Sports ATTACHED ATTACHED ATTACHED Med icin FOR FOR FOR e DETAILED DETAILED DETAILED DIRECTIONS DIRECTIONS DIRECTIONS ropinirole ropinirole No ropinirole Latricia 1 mg tablet 1 mg tablet 1 mg O rthope TAKE 1 TAKE 1 tablet dic TABLET BY TABLET BY TAKE 1 Spo rts MOUTH THREE MOUTH THREE TABLET BY Medicin TIMES A DAY TIMES A DAY MOUTH e THREE TIMES A DAY ropinirole ropinirole No ropinirole Latricia 3 mg tablet 3 mg tablet 3 mg O rthope TAKE 2 TAKE 2 tablet dic TABLETS BY TABLETS BY TAKE 2 S ports MOUTH AT MOUTH AT TABLETS BY M edicin BEDTIME BEDTIME MOUTH AT e BEDTIME tobramycin tobramycin No tobramycin Latricia 0.3 % eye 0.3 % eye 0.3 % eye Orthope drops PLACE drops PLACE drops dic ONE DROP ONE DROP PLACE ONE Sp orts TWICE A DAY TWICE A DAY DROP TWICE Medicin IN LEFT EYE IN LEFT EYE A DAY IN e STARTING STARTING LEFT EYE DAY BEFORE DAY BEFORE STARTING SURGERY SURGERY DAY BEFORE SURGERY tramadol 50 tramadol 50 No tramadol Latricia mg tablet mg tablet 50 mg Orth ope TAKE 1 TAKE 1 tablet dic TABLET BY TABLET BY TAKE 1 Spo rts MOUTH EVERY MOUTH EVERY TABLET BY Medicin 6 TO 8 6 TO 8 MOUTH e HOURS HOURS EVERY 6 TO NEEDED NEEDED 8 HOURS NEEDED Vital Signs Vital Name Observation Time Observation Value Comments Source Height 2023-02-02 00:00:00 65 [in_i] [facility] BMI (Body Mass 2023-02-02 00:00:00 23 kg/m2 [facility]opedic Index) Sports Medicine Body Weight 2023-02-02 00:00:00 138 [lb_av] [facility] Height 2023-01-04 00:00:00 65 [in_i] [facility] BMI (Body Mass 2023-01-04 00:00:00 23 kg/m2 [facility]opedic Index) Sports Medicine Body Weight 2023-01-04 00:00:00 138 [lb_av] [facility] Procedures Procedure Date / Time Performing Clinician Source Performed RADEX SPI LUMBOSAC 2023-01-04 00:00:00 Latricia Or thopedic MINIMUM 4 VIEWS Sports Medicine MRI, lumbar spine, w/o 2023-01-04 00:00:00 Azale a Orthopedic contrast Sports Medicine Appendectomy [facility] Hysterectomy [facility] Tonsillectomy [facility] Plan of Care Planned Activity Planned Date Details Comments Source Future Scheduled 2023-05-02 COVID-19 VACCINE (#1) [facility] Test 22:47:19 [code = COVID-19 VACCINE (#1)] Future Scheduled 2023-05-02 SHINGLES [facility]ACCINES ([facility] 22:47:19 of 2) [code = SHINGLES VACCINES (1 of 2)] Future Scheduled 2023-05-02 65[facility] Test 22:47:19 VACCINE (1 - PCV) [code = 65+ PNEUMOCOCCAL VACCINE (1 - PCV)] Future Scheduled 2023-05-02 INFLUENZA VACCINE [facility] Test 22:47:19 [code = INFLUENZA VACCINE] Encounters Start End Encounter Admission Attending Care Care Encounter Source Date/Time Date/Time Type Type Clinicians Facility Department ID 2023-02-02 2023-02-02 Outpatient FOG_Brown_B AOSM AOSM 549 Latricia 00:00:00 00:00:00 Linda [id number] Orth ope dic Sports Medicin e 2023-02-02 2023-02-02 Houtan A AOSM [place] - Ortho 13 Latricia 00:00:00 00:00:00 MD Venu: Yoana Chavis [address] FOG_Ofc dic [facility] e [address] , Ph. [phone] 2023-01-12 2023-01-12 Outpatient FOG_Brown_B AOSM AOSM 549 Latricia 00:00:00 00:00:00 Linda [id number] Orth ope dic Sports Medicin e 2023-01-07 2023-01-07 Outpatient FOG_Brown_B AOSM AOSM 549 Latricia 00:00:00 00:00:00 Linda [id number] Orth ope dic Sports Medicin e 2023-01-04 2023-01-04 Houtan A AOSM [place] - Ortho Latricia 00:00:00 00:00:00 MD Venu: Yoana Chavis [address] [place] FOG_Ofc dic [facility] A, Medicin [place] [address] , Ph. [phone] 2022-12-26 2022-12-26 Outpatient FOG_Brown_B AOSM AOSM 549 Latricia 00:00:00 00:00:00 Linda [id number] Orth ope dic Sports Medicin e 2022-12-26 2022-12-26 Outpatient FOG_Brown_B AOSM AOSM [id number] Latricia 00:00:00 00:00:00 Linda [id number] Orth ope dic Sports Medicin e 2022-12-20 2022-12-20 Outpatient FOG_McCann_ AOSM AOSM [id number] Latricia 00:00:00 00:00:00 Matias [id number] Orth ope dic Sports Medicin e 2022-12-19 2022-12-19 Outpatient FOG_Brown_B AOSM AOSM 549 [id number] Latricia 00:00:00 00:00:00 Linda [id number] Orth ope dic Sports Medicin e 2022-12-19 2022-12-19 Outpatient FOG_Brown_B AOSM AOSM [id number] 7- Latricia 00:00:00 00:00:00 Linda [id number] Orth ope dic Sports Medicin e 2022-11-23 2022-11-23 Outpatient FOG_McCann_ AOSM AOSM [id number] Latricia 00:00:00 00:00:00 Matias [id number] Orth ope dic Sports Medicin e 2022-03-14 2022-03-14 Outpatient EL Pepper, [facility] SURG [id number] [facility] 08:45:00 08:45:[address] [facility] 2022-03-14 2022-03-14 Outpatient EL Pepper, [facility]CA[facility]U H[facility]U [id number] [facility] 08:45:00 08:45:[address] [facility] 2021-11-09 2021-11-09 Outpatient EL Pepper, [facility] NUCM [id number] [facility] 10:25:00 10:25:[address] [facility] 2021-11-09 2021-11-09 Outpatient EL Pepper, [facility] [id number] [facility] 10:25:00 10:25:[address] [facility] Results Test Description Test Time Test Comments Results Result Comments Source BASIC METABOLIC PANEL 2022-03-14 09:56:00 Test Item Value Reference Range Interpretation Comme nts SODIUM (test code = NA) 137 MMOL/L 137-145 N POTASSIUM (test code = K) 4.2 MMOL/L 3.5-5.1 N CHLORIDE (test code = CL) 103 MMOL/L 98-107 N CARBON DIOXIDE (test code = CO2) 27 MMOL/L 22-30 N GLUCOSE (test code = GLU) 101 MG/DL 74-106 N BLOOD UREA NITROGEN (test code = 25 MG/DL 7-17 H BUN) GLOMERULAR FILTRATION RATE (test 60 Reporting units: ml/min/1.73 code = GFR) m2 (Modified MD RD Formula)Referen ce Range: > or = 60 ml/min/1.7 3 m2 CREATININE (test code = CREAT) 0.90 MG/DL 0.52-1.04 N CALCIUM (test code = CA) 9.2 MG/DL 8.4-10.2 N [id number] 09:56:00 Test Item Value Reference Range Interpretation Comments MAGNESIUM (test code = MAG) 2.4 MG/DL 1.6-2.3 H PROTHROMBIN [id number] 09:45:00 Test Item Value Reference Range Interpretation Comments PROTHROMBIN TIME 10.3 SECONDS 9.4-12.7 N PATIENT (test code = PTP) INTERNATIONAL NORMAL 0.9 0.86-1.14 N The INR is to be RATIO (test code = used only for INR) monitoring oral anticoagulantth erap y. INDICATION I NR VALUE ---- ---- ---- -------1. Prophylaxis, de ep venous thrombos is, including high risk surgery. 2.0 - 3.0 2. Prophylaxis, deep venous thrombosis, hip surgery, treatm ent for deep venous thrombosis or pulmonary prevention of systemic emboli sm in patients wit h valvular heart disease, atrial fibrillation, tissue heart va lve, or acute myocar dial infarction. 2.0 - 3.0 3. Inverted Block Operator al prosthesis hear t valves, recurre nt systemic emboli sm. 3.0 - 4.5 PTT [id number] 09:45:00 Test Item Value Reference Range Interpretation Comments PTT ACTIVATED (test code = APTT) 31.5 SECONDS 26.2-35.4 N CBC W/AUTO [id number] 09:34:00 Test Item Value Reference Range Interpretation Comments WHITE BLOOD CELL (test code = 6.0 K/MM3 3.8-9.8 N WBC) RED BLOOD CELL (test code = 4.30 M/MM3 3.58-4.97 N RBC) HEMOGLOBIN (test code = HGB) 13.1 G/DL 11.2-14.9 N HEMATOCRIT (test code = HCT) 40.1 % 33.2-43.5 N MEAN CELL VOLUME (test code = 93 fL 80.7-99.1 N MCV) MEAN CELL HGB (test code = MCH) 30.5 pg 27.0-34.1 N MEAN CELL HGB CONCETRATION 32.7 % 32.2-35.7 N (test code = MCHC) RED CELL DISTRIBUTION WIDTH 13.0 % 12.1-15.2 N (test code = RDW) PLATELET COUNT (test code = 263 K/MM3 129-368 N PLT) MEAN PLATELET VOLUME (test code 10.4 fl 7.4-10.4 N = MPV) NEUTROPHIL % (test code = NT%) 61.5 % 43-75 N IMMATURE GRANULOCYTE % (test 0.2 % 0.0-2.0 N code = IG%) LYMPHOCYTE % (test code = LY%) 26.2 % 14-44 N MONOCYTE % (test code = MO%) 8.6 % 4-13 N EOSINOPHIL % (test code = EO%) 2.5 % 0-6 N BASOPHIL % (test code = BA%) 1.0 % 0-2 N NUCLEATED RBC % (test code = 0.0 % 0-1.0 N NRBC%) NEUTROPHIL # (test code = NT#) 3.66 K/mm3 2.0-7.6 N IMMATURE GRANULOCYTE # (test 0.01 x10 3/uL 0-0.03 N code = IG#) LYMPHOCYTE # (test code = LY#) 1.56 K/mm3 1.0-3.8 N MONOCYTE # (test code = MO#) 0.51 K/mm3 0.1-0.8 N EOSINOPHIL # (test code = EO#) 0.15 K/mm3 0.0-0.2 N BASOPHIL # (test code = BA#) 0.06 K/mm3 0.0-0.2 N NUCLEATED RBC # (test code = 0.00 K/mm3 0.0-0.1 N NRBC#) - NM MYOCRD SPECT R/S [id number] 15:20:00 [facility] : 1940 Sex: FPatient Name: ARGENIS BUCHANAN Unit No: [id number] EXAMS: CPT CODE: [id number] NM MYOCRD SPECT R/S MULT [id number] INDICATION: Precordial chest pain, left bundle branch block. The patient underwent myocardial perfusion imaging utilizing IV injection of 10.6 mCi Tc99M Cardiolite at rest and IV injection of 30.2 mCi Tc99M Cardiolite at peak stress. SPECT imaging was obtained at rest and stress. GatedSPECT imaging was obtained at stress. Regadenoson protocol was utilized for stress. FINDINGS: There is a mild inferolateral septal perfusion defect that improves with stress.. CONCLUSIONS: 1. ABNORMALREGADENOSON TECHNETIUM 99 CARDIOLITE SHOWING A MILD INFEROSEPTAL PROBABLE ATTENUATION ARTIFACT. 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 2. GATED PERFUSION IMAGING SHOWS NORMAL LEFT VENTRICULAR SIZE WITH MILDLY DEPRESSED SYSTOLIC FUNCTION. END-DIASTOLIC VOLUME IS 112 mL, END-SYSTOLIC VOLUME IS 59 mL, AND THE EJECTION FRACTION IS 47 %. at 1520 Reported and signed by: Salas Kohli M.D. CC: Salas Kohli Technologist: Bro Elena ARRT; Sesar Carolina, RT(N); . Transcrpt Date/Tm/Trnsp: 11/10/2021 (1520) [email or web address] Orig Print D/T: S: 11/10/2021 (9384) [facility] NAME: ARGENIS BUCHANAN [id number] PHYS: [place] [address] : 1940 AGE: 81 SEX: F LOC: JulianaNUC PHONE #: [phone] EXAM DATE: 11/09/2021TATUS: WEN CLI FAX #: [phone] RADIOLOGY NO: PAGE 1 Signed Report- NM MYOCRD SPECT R/S [id number] 11:01:00 Patient Name: ARGENIS BUCHANAN Unit No: [id number] EXAMS: CPT CODE: [id number] NM MYOCRD SPECT R/S MULT [id number] CLINICAL HISTORY: Bundle branch block. LOCATION: COMPARISON: November 03, 2014 F INDINGS: A Lexiscan stress SPECT myocardial perfusion scan [...] Daniel Johnson MD CC: Salas Kohli Technologist: Erika Duran, RT(NM) Transcrpt Date/Tm/Trnsp: 01/09/2019 (1101) [email or web address] Orig Print D/T: S: 01/09/2019 (7694) [facility] NAME: ARGENIS BUCHANAN [id number] [facility] [address] PHYS: [place] [address] : 1940 AGE: 78 SEX: F LOC: DAVIS PHONE #: [phone] EXAM DATE: 01/04/2019 STATUS: WEN ZAMBRANO FAX #: [phone] RADIOLOGY NO: PAGE 1 Signed Report Notes Date/Time Note Provider Source 2022-03-14 17:07:00-00:00 [id number] [facility] [address] [place] [address] PATIENT NAME: ARGENIS BUCHANAN ADMIT DEYSI E: 03/14/22 ACCOUNT NO: [id number] ROOM NO: AGE: 81 REPORT TYPE: ECHOCARDIOGRAM SEX: F ADMITTING PHYSICIAN: ATTENDING PHYSICIAN:Salas Kohli MD *[facility]* [address] [place] [address] Transthoracic Echocardiogram (Report amended [id number]) Patient: Argenis Buchanan Study Date: 03/14/2022 BP: 175 / 73 Location: [facility] URN: [id number] : 1940 Age: 81 Height: 67 in / 170.2 cm Gender: F Weight: 137 lb / 62.3 kg BMI/BSA: 21.5 kg/m 2 / 1.72 m 2 *Ordering Physician: * Salas Kohli MD *Interpreting Physician: * Salas Kohli MD *Crm Marketing Executive: * Portia Wesley RDCS, Barbara Indications: Cardiomyopathy Study data: Transthoracic echocardiogram. Proced ure: Transthoracic echocardiography was performed. Images were obta ined using a [employer] cardiac ultrasound machine. Image quality was fair. M-mo de, complete 2D, complete spectral Doppler, and color Doppler. Lo cation: Catheterization laboratory. [facility] number[facility] CH 2. Study status: Routine. Findings Left ventricle: The cavity size is normal. Wall thickness is mildly increased. Systolic function is mildly reduced. The estimated ejection PATIENT NAME: ARGENIS BUCHANAN fraction is 45-49%. Regional wall motion abnorma lities: Mild hypokinesis. Pulmonary venous flow is not record ed. The tissue Doppler parameters are abnormal. Doppler parameters are consistent with abnormal left ventricular relaxation (grade 1 diastolic d ysfunction). Right ventricle: The cavity size is normal. Syst olic function is normal. The tricuspid jet envelope definition is inadequate for estimation of RV systolic pressure. Ventricular septum: Septal motion is moderately paradoxical. Left atrium: The atrium is normal in size. Right atrium: The atrium is normal in size. Atrial septum: No defect or patent foramen ovale is identified. Aorta: The aorta is normal. The aortic root is n ot dilated. Aortic valve: The valve is structurally normal. The valve is trileaflet. Transvalvular velocity is within the normal range. There is no evidence of stenosis. There is mild to mod erate regurgitation. Mitral valve: The valve is structurally normal. There is no evidence of stenosis. There is mild regurgitatio n. Tricuspid valve: The valve is structurally edil l. There is no evidence of stenosis. There is physiologic regur gitation. Pulmonic valve: Not well visualized. Pericardium: There is no pericardial effusion. Systemic veins: Inferior vena cava: The vessel is normal in size . Measurements Left ventricle Value 11/09/2021 Ref JORI, LAX 4.7 cm 4.6 3.8 - 5.2 ESD, LAX 3.6 cm 3.4 2.2 - 3.5 ESD/bsa, 2.1 cm/m 2 2.0 1.3 LAX - 2.1 FS, LAX 24 % 25 27 - 45 ESD/bsa 3.6 cm/m 2 4.0 ---- major ax, A4C JORI/bsa 3.6 cm/m 2 4.0 ---- minor ax, A4C JORI major 7.5 cm 7.3 ---- ax, A2C ESD major 6.2 cm 6.7 ---- ax, A2C JORI/bsa 4.4 cm/m 2 4.3 ---- major ax, A2C ESD/bsa 3.6 cm/m 2 4.0 ---- major ax, PATIENT NAME: ARGENIS BUCHANAN A2C PW, ED 1.1 cm 1.1 0.6 - 0.9 PW, ES 1.7 cm 1.4 ---- IVS/PW, ED 0.95 1.07 ---- EF 48 % 50 54 - 74 LVOT Value 11/09/2021 Ref Diam, S 2.04 cm 1.97 ---- Area 3.3 cm 2 3.0 ---- Peak sarah beth, 0.99 m/sec 1.05 ---- S Mean sarah beth, 0.68 m/sec 0.72 ---- S VTI, S 27.3 cm 22.0 ---- Peak grad, 4 mm Hg 4 ---- S Mean grad, 2 mm Hg 2 ---- S SV 89 ml 67 ---- Qs 4.38 L/min 4.23 ---- Qs/bsa 2.6 L/(min-m 2) 2.5 ---- SV/bsa 52 ml/m 2 40 ---- Ventricular septum Value 11/09/2021 Ref IVS, ED 1.1 cm 1.1 0.6 - 0.9 IVS, ES 1.4 cm 1.4 ---- Right ventricle Value 11/09/2021 Ref JORI, LAX 1.4 cm 2.0 ---- Left atrium Value 11/09/2021 Ref AP dim, ES 2.66 cm 3.93 2.70 - 3.80 Area ES, 11 cm 2 16 <=20 A4C AP dim, ES 2.3 cm 4.0 2.7 MM - 3.8 LA/Ao root 0.84 1.51 ---- ratio, MM Right atrium Value 11/09/2021 Ref Area, ES, 9 cm 2 13 10 - A4C 18 Aortic valve Value 11/09/2021 Ref Leaflet 2.01 cm 1.87 ---- sep, MM PATIENT NAME: ARGENIS BUCHANAN Peak v, S 1.76 m/sec 1.57 ---- Mean v, S 1.11 m/sec 1.1 ---- VTI, S 47.9 cm 45.0 ---- Mean grad, 5.8 mm Hg 5.5 ---- S Peak grad, 12.4 mm Hg 10.3 ---- S LVOT/AV, 0.57 0.49 ---- VTI ratio ANDREE, VTI 1.86 cm 2 2.60 ---- LVOT/AV, 0.56 0.67 ---- Vpeak ratio ANDREE, Vmax 1.83 cm 2 2.64 ---- AR peak v 4.3 m/sec 4.79 ---- AR decel 184 cm/s 2 321 ---- AR decel 2331 ms 1276 ---- time AR PHT 676 ms 370 ---- AR peak 74 mm Hg 92 ---- grad Mitral valve Value 11/09/2021 Ref Peak E 0.61 m/sec 0.76 ---- Peak A 1.08 m/sec 1.11 ---- Mean v, D 0.49 m/sec 0.62 ---- VTI 31.6 cm 26.0 ---- leaflet coapt Decel time 478 ms 220 ---- PHT 81 ms 72 ---- Mean grad, 1.1 mm Hg 1.9 ---- D Peak grad, 3.6 mm Hg 6.6 ---- D Peak E/A 0.57 0.69 ---- ratio MVA, PHT 2.7 cm 2 3.1 ---- MR peak v 4.58 m/sec 5.49 ---- Pulmonic valve Value 11/09/2021 Ref IN v, ED 0.49 m/sec 0.63 ---- Aortic root Value 11/09/2021 Ref Root diam, 2.75 cm 2.62 ---- ED MM Conclusions Summary: 1. Left ventricle: The cavity size is normal. Wa ll thickness is mildly increased. Systolic function is mildly reduced. The estimated PATIENT NAME: ARGENIS BUCHANAN ejection fraction is 45-49%. Mild hypokinesis. Doppler parameters are consistent with abnormal left ventricular relax ation (grade 1 diastolic dysfunction). 2. Ventricular septum: Septal motion is moderate ly paradoxical. 3. Aortic valve: There is mild to moderate regur gitation. 4. Mitral valve: There is mild regurgitation. Amended Salas Kohli MD 03/14/2022 17:07 at 1707 PATIENT NAME: ARGENIS BUCHANAN 2022-03-14 14:54:00-00:00 [id number] [address] PATIENT NAME: ARGENIS BUCHANAN ADMIT DEYSI E: 03/14/22 ACCOUNT NO: [id number] ROOM NO: AGE: 81 REPORT TYPE: CARDIAC CATHETERIZATION REPORT SEX: F ADMITTING PHYSICIAN: ATTENDING PHYSICIAN:Salas Kohli MD PROCEDURE DATE: 03/14/2022 PROCEDURES: 1. Left heart catheterization. 2. Selective coronary angiography. 3. Left ventriculography. 4. Right femoral arteriography. 5. Angio-Seal deployment. PREOPERATIVE DIAGNOSES: 1. Unstable angina. 2. Hypertension. POSTPROCEDURE DIAGNOSES: 1. No significant coronary artery disease. 2. Hypertension. ENGRAVER APPRENTICE DECORATIVE: Salas Kohli MD. LUNG SPLITTER: None. ANESTHESIA: Local anesthesia with 1% lidocaine a nd moderate sedation. PROCEDURE IN DETAIL: After informed consent was obtained explaining to the patient risks, benefits, and alternatives, the doug augustine was brought to the cardiac catheterization lab in the fasting post- absorptive state. She was prepped and draped in sterile fashion. Local ane sthesia was applied to the right femoral artery with 1% lidocaine. Access t o right femoral artery was obtained using modified Seldinger techni que with micropuncture kit. A 6-Faroese sheath was advanced over the wire in the right f emoral artery. The sheath was aspirated and flushed. A 6-Faroese JL4 catheter w as advanced over the wire and engaged the left main coronary artery. Multiple views of left coronary system were obtained. The JL4 catheter was exchanged fo r a 6-Faroese JR4 catheter, which was advanced over the wire and engaged the right coronary artery. Multiple views of right coronary system were obt ained. The JL4 catheter was exchanged for a 6-Faroese pig tail catheter, which was advanced over the wire and across the aortic valve. Lef t ventricular pressures were measured and recorded. Left ventriculogram was obtained. The p igtail catheter was reconnected to the pressure transducer and withdrawn over t he aortic valve. Aortic pressures were measured and recorded. The pigtail catheter was removed. The sheath was aspirated and flushed. A rig ht femoral arteriogram was obtained via the sheath. After confirmation of adequate placement of the sheath, 6-Faroese Angio-Seal PATIENT NAME: ARGENIS BUCHANAN device was deployed without complication. The pa tienury tolerated the procedure well with no complications. FINDINGS: 1. Left main - short. No significant disease. 2. Left anterior ascending - small, tortuous mid and distal segment. 3. First diagonal - large vessel without signifi cant disease. 4. Left circumflex - no significant disease. 5. Right coronary artery - dominant. No signific ant disease. 6. Left ventriculogram: Overall ejection fractio n is approximately 55%. PRESSURES: Aortic pressure 136/44, LV pressure 1 33, end-diastolic pressure of 18. CONCLUSIONS: 1. No significant cardiopulmonary disease. 2. Small, tortuous LAD without significant steno sis. 3. Normal left ventricular systolic function. ESTIMATED BLOOD LOSS: 5 mL. COMPLICATIONS: None. Dictated By: Salas Kohli MD WT: CATH:[email or web address] Conf#: [id number]/DID#: [id number] Authenticated by Salas Kohli MD On 03/17/20 06:45:52 PM at 0645 PATIENT NAME: ARGENIS BUCHANAN 2022-03-14 09:57:00-00:00 [id number] [place] [address] PATIENT NAME: ARGENIS BUCHANAN ADMIT DEYSI E: 03/14/22 ACCOUNT NO: [id number] ROOM NO: AGE: 81 REPORT TYPE: ELECTROCARDIOGRAM SEX: F ADMITTING PHYSICIAN: ATTENDING PHYSICIAN:Salas Kohli MD Order: [id number] Test Reason : CHEST PAIN Test Date/Time Stamp: MonMar 14 2022 09:57:56 Blood Pressure : / mmHG Vent. Rate : 047 BPM Atrial Rate : 047 BPM P-R Int : 166 ms QRS Dur : 142 ms QT Int : 516 ms P-R-T Axes : 028 056 -65 degree s QTc Int : 456 ms Marked sinus bradycardia Left bundle branch block Abnormal ECG When compared with ECG of 04-JAN-2019 14:13, Vent. rate has decreased BY 40 BPM T wave inversion now evident in Anterior leads Confirmed by TOÑITO PERALTA MD ([id number]) on 2 8:51:53 AM Referred By: Self Referred Confirmed by:TOÑITO DRUMMOND MD Electronically Signed by Toñito Peralta MD on at 0843 PATIENT NAME: ARGENIS BUCHANAN 2021-11-10 07:59:00-00:00 [id number] [facility] [address] [place] [address] PATIENT NAME: ARGENIS BUCHANAN ADMIT DEYSI E: 11/09/21 ACCOUNT NO: [id number] ROOM NO: AGE: 81 REPORT TYPE: ECHOCARDIOGRAM SEX: F ADMITTING PHYSICIAN: ATTENDING PHYSICIAN:Salas Kohli MD *[facility]* [address] [place] [address] Transthoracic Echocardiogram Patient: Argenis Buchanan Study Date: 11/09/2021 BP: Location: [facility] URN: [id number] 99 : 1940 Age: 81 Height: 65 in / 165.1 cm Gender: F Weight: 134 .7 lb / 61.2 kg BMI/BSA: 22.5 kg/m 2 / 1.68 m 2 *Ordering Physician: * Salas Kohli MD *Interpreting Physician: * Salas Kohli MD *Crm Marketing Executive: * Christine Franco RVT Indications: DYSPEA. Chest Pain, unspecified. Study data: Transthoracic echocardiogram. Proced ure: Transthoracic echocardiography was performed. Images were obta ined using a [employer] cardiac ultrasound machine. Image quality was adequate. M-mode, complete 2D, complete spectral Doppler, and color Doppler. Lo cation: Recovery room. Patient status: Inpatient. Patient room number: CH10. Study status: Routine. Rhythm: Normal sinus rhythm. Findings Left ventricle: The cavity size is normal. Wall thickness is mildly increased. The estimated ejection fraction is 45 -49%. Regional wall motion abnormalities: Mild hypokinesis. The pulm onary vein flow pattern is normal. Doppler parameters are consis tent with abnormal left PATIENT NAME: ARGENIS BUCHANAN ventricular relaxation (grade 1 diastolic dysfun ction). Right ventricle: The cavity size is normal. Syst olic function is normal. The tricuspid jet envelope definition is inadequate for estimation of RV systolic pressure. Left atrium: The atrium is normal in size. Right atrium: The atrium is normal in size. Atrial septum: No defect or patent foramen ovale is identified. Aorta: The aortic root is not dilated. Aortic valve: The valve is trileaflet. The leafl ets are mildly calcified. There is mild to moderate regurgitati on. Mitral valve: The leaflets are mildly thickened. There is mild regurgitation. Tricuspid valve: Not well visualized. There is t rivial regurgitation. Pulmonic valve: Not well visualized. There is no significant regurgitation. Pericardium: There is no pericardial effusion. N o evidence of pleural fluid accumulation. Systemic veins: Inferior vena cava: The vessel is normal in size . Measurements Left ventricle Value Ref JORI, LAX 4.6 cm 3.8 - 5.2 ESD, LAX 3.4 cm 2.2 - 3.5 ESD/bsa, LAX 2.0 cm/m 2 1.3 - 2.1 FS, LAX 25 % 27 - 45 ESD/bsa major 4.0 cm/m 2 --------- ax, A4C JORI/bsa minor 4.0 cm/m 2 --------- ax, A4C JORI major ax, 7.3 cm --------- A2C ESD major ax, 6.7 cm --------- A2C JORI/bsa major 4.3 cm/m 2 --------- ax, A2C ESD/bsa major 4.0 cm/m 2 --------- ax, A2C PW, ED 1.1 cm 0.6 - 0.9 PW, ES 1.4 cm --------- IVS/PW, ED 1.07 --------- EF 50 % 54 - 74 IVRT 137 ms --------- E', lat bayron, 8.0 cm/sec >=10.0 TDI E/e', lat bayron, 10 --------- TDI E', med bayron, 6.0 cm/sec >=7.0 TDI E/e', med bayron, 13 --------- TDI E', avg, TDI 7.0 cm/sec --------- PATIENT NAME: ARGENIS BUCHANAN E/e', avg, TDI 11 <=14 LVOT Value Ref Diam, S 1.97 cm --------- Area 3.0 cm 2 --------- Peak sarah beth, S 1.05 m/sec --------- Mean sarah beth, S 0.72 m/sec --------- VTI, S 22.0 cm --------- Peak grad, S 4 mm Hg --------- Mean grad, S 2 mm Hg --------- SV 67 ml --------- Qs 4.23 L/min --------- Qs/bsa 2.5 L/(min-m 2) --------- SV/bsa 40 ml/m 2 --------- Ventricular septum Value Ref IVS, ED 1.1 cm 0.6 - 0.9 IVS, ES 1.4 cm --------- Right ventricle Value Ref JORI, LAX 2.0 cm --------- S' lateral 22.0 cm/sec 6.0 - 13.4 RVOT Value Ref Peak v, S 0.73 m/sec --------- Peak grad, S 2 mm Hg --------- Left atrium Value Ref AP dim, ES 3.93 cm 2.70 - 3.80 Area ES, A4C 16 cm 2 <=20 AP dim, ES MM 4.0 cm 2.7 - 3.8 LA/Ao root 1.51 --------- ratio, MM Right atrium Value Ref Area, ES, A4C 13 cm 2 10 - 18 Aortic valve Value Ref Leaflet sep, MM 1.87 cm --------- Peak v, S 1.57 m/sec --------- Mean v, S 1.1 m/sec --------- VTI, S 45.0 cm --------- Mean grad, S 5.5 mm Hg --------- Peak grad, S 10.3 mm Hg --------- LVOT/AV, VTI 0.49 --------- ratio ANDREE, VTI 2.60 cm 2 --------- LVOT/AV, Vpeak 0.67 --------- ratio ANDREE, Vmax 2.64 cm 2 --------- AR peak v 4.79 m/sec --------- AR decel 321 cm/s 2 --------- PATIENT NAME: ARGENIS BUCHANAN AR decel time 1276 ms --------- AR PHT 370 ms --------- AR peak grad 92 mm Hg --------- Mitral valve Value Ref Peak E 0.76 m/sec --------- Peak A 1.11 m/sec --------- Mean v, D 0.62 m/sec --------- VTI leaflet 26.0 cm --------- coapt Decel time 220 ms --------- PHT 72 ms --------- Mean grad, D 1.9 mm Hg --------- Peak grad, D 6.6 mm Hg --------- Peak E/A ratio 0.69 --------- MVA, PHT 3.1 cm 2 --------- MR peak v 5.49 m/sec --------- Pulmonic valve Value Ref IN v, ED 0.63 m/sec --------- Aortic root Value Ref Root diam 3.4 cm <3.9 Root diam, ED 2.62 cm --------- MM Conclusions Summary: 1. Left ventricle: The cavity size is normal. Wa ll thickness is mildly increased. The estimated ejection fraction is 4 5-49%. Mild hypokinesis. Doppler parameters are consistent with abnormal left ventricular relaxation (grade 1 diastolic dysfu nction). 2. Aortic valve: There is mild to moderate regur gitation. Prepared and electronically signed by Salas Kohli MD 11/10/2021 07:59 at 0759 PATIENT NAME: ARGENIS BUCHANAN 2021-11-09 12:19:00-00:00 [id number] [place] [address] PATIENT NAME: ARGENIS BUCHANAN ADMIT DEYSI E: 11/09/21 ACCOUNT NO: [id number] ROOM NO: AGE: 81 REPORT TYPE: eSTRESS EKG REPORT SEX: F ADMITTING PHYSICIAN: ATTENDING PHYSICIAN:Salas Kohli MD Acquisition Time: 2021-11-09 12:19:11 Test Date/ Time Stamp:MonNov 09 2021 12:19:11 Total Exercise Time: 00:01:28 Test Indications: Angina Medications: Protocol: LEXISCAN Max HR: 107 BPM 75% of Pred: 141 BPM Max BP: 158/081 mmHG Max Work Load: 1.0 METS Inconclusive ECG exercise stress test due to res ting ECG abnormalities. Myocardial perfusion scan to follow I provided direct supervision for this test Confirmed by SALAS KOHLI MD ([id number]) on 022 7:34:38 AM Referred By: Salas Kohli Confirmed by:SALAS KOHLI MD at 0734 PATIENT NAME: ARGENIS BUCHANAN 2019-01-04 14:13:00-00:00 [id number] [place] [address] PATIENT NAME: ARGENIS BUHCANAN ADMIT DEYSI E: 01/04/19 ACCOUNT NO: [id number] ROOM NO: AGE: 78 REPORT TYPE: ELECTROCARDIOGRAM SEX: F ADMITTING PHYSICIAN: ATTENDING PHYSICIAN:Salas Kohli MD Order: [id number] Test Reason : R07.2 Test Date/Time Stamp: MonJan 04 2019 14:13:44 Blood Pressure : / mmHG Vent. Rate : 087 BPM Atrial Rate : 087 BPM P-R Int : 128 ms QRS Dur : 136 ms QT Int : 424 ms P-R-T Axes : 064 044 259 degree s QTc Int : 510 ms Normal sinus rhythm Left bundle branch block Abnormal ECG No previous ECGs available Confirmed by MD BOYKIN ALFREDO TOMAS ([id number]) on 01/07/2019 3:01:35 PM Referred By: Salas Kohli Confirmed by:ED BOYKIN MD at 1501 PATIENT NAME: ARGENIS BUCHANAN 2019-01-04 13:45:00-00:00 [id number] [place] [id number] PATIENT NAME: ARGENIS BUCHANAN ADMIT DEYSI E: 01/04/19 ACCOUNT NO: [id number] ROOM NO: AGE: 78 REPORT TYPE: eSTRESS EKG REPORT SEX: F ADMITTING PHYSICIAN: ATTENDING PHYSICIAN:Salas Kohli MD Acquisition Time: 2019-01-04 13:45:07 Test Date/ Time Stamp:MonJan 04 2019 13:45:07 Total Exercise Time: 00:00:39 Test Indications: Medications: Protocol: Lexiscan Max HR: 109 BPM 75% of Pred: 144 BPM Max BP: 156/094 mmHG Max Work Load: 1.0 METS Abnormal ECG regadenoson stress test Myocardial perfusion scan to follow Confirmed by SALAS KOHLI MD ([id number]) on 019 12:58:06 PM Referred By: Salas Kohli Confirmed by:SALAS KOHLI MD at 6824 PATIENT NAME: ARGENIS BUCHANAN
[2023-05-02] MEDS ORDERED: METOCLOPRAMIDE 10 MG/2mL INJ ONE (23:52)
[2023-05-02] MEDS ORDERED: cloNIDine HCL 0.1 MG TAB ONE (23:52)
[2023-05-02] MEDS ORDERED: MORPHINE 4 MG/ML SYR ONE (23:53)
[2023-05-02] MEDS ORDERED: KETOROLAC 30 MG/ML INJ ONE (23:53)
[2023-05-02] MEDS ORDERED: DIPHENHYDRAMINE 50 MG/ML VIAL ONE (23:53)
[2023-05-02 23:59] LABS: Renal Epithelial <5 /HPF (None Seen); Specific Gravity 1.009 (1.005-1.030); Urine Bacteria None Seen /HPF (<20); Urine Bilirubin NEGATIVE (Negative); Urine Blood 1+ (Negative); Urine Clarity Clear (Clear); Urine Color Colorless (Yellow); Urine Glucose NEGATIVE (Negative); Urine Protein NEGATIVE (Negative); Urine RBC None Seen /HPF (None Seen); Urine Urobilinogen Normal (Normal)
[2023-05-03] LABS: Absolute Lymphocytes (CBC) 1.3 K/uL (0.7-4.9); Hematocrit 42.7 % (36.0-45.0); MCV 92.5 fL (80-100); MPV 9.8 fL (7.6-11.3); RBC Red Blood Cell Count 4.62 M/uL (3.86-4.86)
[2023-05-03 00:01] LABS: Protime INR 0.95
[2023-05-03 00:13] LABS: Bilirubin Direct 0.1 mg/dL (0-0.2); Bilirubin Indirect, Calculated 0.3 mg/dL (0.2-0.8); Bilirubin Total 0.4 mg/dL (0.2-1.0); Potassium 3.5 mEq/L (3.5-5.1); Protein, Total 7.9 g/dL (6.4-8.2)
--- NOTE | 2023-05-03 01:59 | EDPHYS ---
Physician Documentation [facility] Name: Argenis Plata Age: 82 yrs Sex: Female : 1940 Arrival Date: 05/02/2023 Time: 22:44 Bed 18 Private MD: ED Physician Omid Ferrell HPI: 05/02 22:55 This 82 yrs old Female presents to ER via Unassigned with complaints of sp4 Headache, Neck Pain, >24Hrs Old. 05/03 02:05 Very pleasant 82-year-old female with past medical history of hypertension, left bundle sp4 branch block, who is female presents with a cute onset of moderate global headache associated with neck stiffness. This headache started in the morning and patient has noticed that she is having elevated blood pressure. Patient particularly concerned for brain aneurysm and this is what brought her to the emergency room. Patient does not have any prior similar headache. . Historical: - Allergies: 05/02 23:12 Demerol; vc1 23:12 Iodinated Contrast Media - IV Dye; vc1 23:12 Sulfa (Sulfonamide Antibiotics); vc1 - Home Meds: 23:12 ropinirole oral [Active]; amlodipine oral [Active]; vc1 - PMHx: 23:12 RLS; Hypertensive disorder; Left BBB; vc1 - PSHx: 23:12 hysterectomy/tonsil; vc1 - Immunization history:: Client reports receiving the Jad \T\ Jad single-dose vaccine. Last tetanus immunization: < 5 years ago Flu vaccine is not up to date. - Social history:: Smoking status: Patient denies any tobacco usage or history of. - Family history:: not pertinent. ROS: 05/03 02:05 Constitutional: Negative for fever, chills, and weight loss, Eyes: Negative for injury, sp4 pain, redness, and discharge, ENT: Negative for injury, pain, and discharge, Neck: Negative for injury, pain, and swelling, positive for neck stiffness associated with headache Cardiovascular: Negative for chest pain, palpitations, and edema, Respiratory: Negative for shortness of breath, cough, wheezing, and pleuritic chest pain, Abdomen/GI: Negative for abdominal pain, nausea, vomiting, diarrhea, and constipation, Back: Negative for injury and pain, : Negative for injury, bleeding, discharge, and swelling, MS/Extremity: Negative for injury and deformity, Skin: Negative for injury, rash, and discoloration, Neuro: Negative for weakness, numbness, tingling, and seizure, positive for global headache Psych: Negative for depression, anxiety, Allergy/Immunology: Negative for hives, rash, and allergies Endocrine: Negative for neck swelling, polydipsia, polyuria, polyphagia, and weight changes Hematologic/Lymphatic: Negative for swollen nodes, abnormal bleeding, and unusual bruising Exam: 02:05 Constitutional: This is a well developed, well nourished patient who is awake, alert, sp4 and in no acute distress. Head/Face: Normocephalic, atraumatic. Eyes: Pupils equal round and reactive to light, extra-ocular motions intact. Lids and lashes normal. Conjunctiva and sclera are not injected. Cornea within normal limits. Periorbital areas with no swelling, redness, or edema. ENT: Nares patent. No nasal discharge, no septal abnormalities noted. Tympanic membranes are normal and external auditory canals are clear. Oropharynx with no redness, swelling, or masses, exudates, or evidence of obstruction, uvula midline. Mucous membranes moist. Neck: Trachea midline, no thyromegaly or masses palpated, and no cervical lymphadenopathy. Supple, full range of motion without nuchal rigidity, or vertebral point tenderness. Chest/axilla: Normal chest wall appearance and motion. Nontender with no deformity. No lesions are appreciated. Cardiovascular: Regular rate and rhythm with a normal S1 and S2. No gallops, murmurs, or rubs. Normal PMI, no JVD. No pulse deficits. Respiratory: Lungs have equal breath sounds bilaterally, clear to auscultation and percussion. No rales, rhonchi or wheezes noted. No increased work of breathing, no retractions or nasal flaring. Abdomen/GI: Soft, non-tender, with normal bowel sounds. No distension or tympany. No guarding or rebound. No evidence of tenderness throughout. Back: No spinal tenderness. No costovertebral tenderness. Skin: Warm, dry with normal turgor. Normal color with no rashes, no lesions, and no evidence of cellulitis. MS/ Extremity: Pulses equal, no cyanosis. Neurovascular intact. Full, normal range of motion. Neuro: Awake and alert, GCS 15, oriented to person, place, time, and situation. Cranial nerves II-XII grossly intact. Motor strength 5/5 in all extremities. Sensory grossly intact. Psych: Awake, alert, with orientation to person, place and time. Behavior, mood, and affect are within normal limits 02:05 ECG was reviewed by the Attending Physician. 2326, there is sinus bradycardia at the rate of 54, left bundle branch block. Negative NE by Sgarbossa criteria Vital Signs: 05/02 23:05 BP 192 / 63; Pulse 66; Resp 14; Pulse Ox 99% ; vc1 23:33 BP 186 / 62; Pulse 53; Resp 16; Pulse Ox 98% ; kl 23:59 BP 182 / 74; kl 07 01:18 BP 177 / 68; Pulse 57; Resp 18; Pulse Ox 100% on R/A; ll3 02:00 BP 145 / 55; Pulse 55; Resp 14; Pulse Ox 99% on R/A; Pain 0/10; ll3 02:00 Pain Scale: Adult ll3 Ankit Coma Score: 02:10 Eye Response: spontaneous(4). Motor Response: obeys commands(6). Verbal Response: sp4 oriented(5). Total: 15. MDM: 05/02 23:05 Patient medically screened. sp4 05/03 02:10 Differential diagnosis: epidural hematoma, hypertensive headache, hypoglycemia, sp4 hyponatremia, subarachnoid bleed, subdural hematoma, tension headache, vasomotor headache. Data reviewed: vital signs, nurses notes, old medical records, lab test result(s), EKG, radiologic studies, CT scan. ED course: CT head is negative today - IMPRESSION: 1. No acute intracranial findings. 2. Moderate spondylosis of the cervical spine without acute findings. . 02:12 ED course: Lab work-up basically unremarkable. Patient states her headache has improved sp4 after medications. Patient is stable for discharge home with as needed Fioricet for headache. Will advise patient with size worker for repeat assessment in 7 to 10 days . . 05/02 23:32 Order name: Basic Metabolic Panel; Complete Time: 01:48 sp4 05/02 23:32 Order name: CBC with Diff; Complete Time: 01:48 sp4 05/02 23:32 Order name: LFT's; Complete Time: 01:48 sp4 05/02 23:32 Order name: NT PRO-BNP; Complete Time: 01:48 [facility] 05/02 23:32 Order name: PT-INR; Complete Time: :48 [facility] 05/02 23:32 Order name: Troponin HS; Complete Time: 01:48 [facility] 05/02 23:38 Order name: Urine W/Microscopic (UAM); Complete Time: 01:48 05/02 23:33 Order name: CT Head C Spine [facility] 05/02 23:32 Order name: EKG; Complete Time: 23:33 [facility] 05/02 23:32 Order name: Cardiac monitoring; Complete Time: 23:40 [facility] 05/02 23:32 Order name: EKG - Nurse/Tech; Complete Time: 23:40 [facility] 05/02 23:32 Order name: IV Saline Lock; Complete Time: 23:40 [facility] 05/02 23:32 Order name: Labs collected and sent; Complete Time: 23:40 [facility] 05/02 23:32 Order name: O2 Per Protocol; Complete Time: 23:40 [facility] 05/02 23:32 Order name: O2 Sat Monitoring; Complete Time: 23:40 4 EC:05 Rate is 54 beats/min. Rhythm is regular, Sinus bradycardia. QRS interval is prolonged. sp4 No ST changes noted. Clinical impression: No evidence of ischemia. Interpreted by me. Administered Medications: 05/02 23:40 Drug: morphine IVP or IV 4 mg Route: IVP; Infused Over: 4 mins; Site: right antecubital; 05/03 00:40 Follow up: Response: No adverse reaction; Marked relief of symptoms; Pain is decreased pf1 05/02 23:45 Drug: metoCLOPramide IVP 10 mg Route: IVP; Site: right antecubital; 05/03 00:40 Follow up: Response: No adverse reaction; Marked relief of symptoms; Pain is decreased pf1 05/02 23:57 Drug: cloNIDine PO 0.1 mg Route: PO; 05/03 00:50 Follow up: Response: No adverse reaction; Marked relief of symptoms; Blood pressure is pf1 lowered 05/02 23:58 Drug: Ketorolac IVP 15 mg Route: IVP; Site: right antecubital; 05/03 00:40 Follow up: Response: No adverse reaction; Marked relief of symptoms; Pain is decreased pf1 00:57 Not Given (Patient Refused): diphenhydrAMINE IVP 25 mg IVP once kl Disposition Summary: 05/03/23 01:58 Discharge Ordered Location: Home sp4 Problem: new sp4 Symptoms: have improved sp4 Condition: Stable sp4 Diagnosis - Tension-type headache sp4 - Essential (primary) hypertension sp4 Followup: sp4 - With: Private Physician - When: 7 - 10 days - Reason: Recheck today's complaints Discharge Instructions: - Discharge Summary Sheet sp4 - General Headache Without Cause sp4 Forms: - Patient Portal [email or web address] sp4 Prescriptions: - Fioricet 50-300-40 mg Oral capsule - take 1 capsule by ORAL route every 8 hours; 30 capsule; Refills: 0, Product sp4 Selection Permitted Signatures: Dispatcher [employer] Gregoria Garcia RN RN kl Belen Joseph RN RN vc1 Omid Ferrell MD MD sp4 Magdalena Vickers RN pf1
--- NOTE | 2023-05-03 01:59 | ER ---
Nurse's Notes [facility] Name: Argenis Plata Age: 82 yrs Sex: Female : 1940 Arrival Date: 05/02/2023 Time: 22:44 Bed 18 Private MD: Diagnosis: Tension-type headache;Essential (primary) hypertension Presentation: 05/02 23:10 Chief complaint: Patient states: Headache in the frontal that radiates to temporal to vc1 posterior neck starting at 1100 with vomiting times 1. Pt denies any head injury> Has had some UTI frequency yesterday took an antibiotic from an old prescription. Coronavirus screen: Vaccine status: Patient reports receiving the 1st dose of the Covid vaccine. Client denies travel out of the [place] in the last 14 days. At this time, the client does not indicate any symptoms associated with coronavirus-19. Ebola Screen: Patient negative for fever greater than or equal to 101.5 degrees Fahrenheit, and additional compatible Ebola Virus Disease symptoms Patient denies exposure to infectious person. Patient denies travel to an Ebola-affected area in the 21 days before illness onset. No symptoms or risks identified at this time. Initial Sepsis Screen: Does the patient meet any 2 criteria? No. Patient's initial sepsis screen is negative. Does the patient have a suspected source of infection? Yes: Dysuria/Frequency/Urgency/UTI. Risk Assessment: Do you want to hurt yourself or someone else? Patient reports no desire to harm self or others. Onset of symptoms was May 02, 2023 at 11:00. 23:10 Method Of Arrival: Ambulatory vc1 23:10 Acuity: MIHAI 3 vc1 Triage Assessment: 23:16 General: Appears in no apparent distress. uncomfortable, ill, slender, Behavior is vc1 cooperative, appropriate for age. Pain: Complains of pain in top of head Pain radiates to right islam, left islam, scalp, right posterior aspect of neck and left posterior aspect of neck Pain currently is 10 out of 10 on a pain scale. Pain began 1100 today Is continuous. Pain: Also complains of no other associated symptoms. EENT: No deficits noted. Neuro: Level of Consciousness is awake, alert, obeys commands, Oriented to person, place, time, situation, Appropriate for age Reports headache frontal area. Cardiovascular: No deficits noted. Respiratory: Airway is patent Respiratory effort is even, unlabored, Respiratory pattern is regular, symmetrical. GI: No deficits noted. No signs and/or symptoms were reported involving the gastrointestinal system. : No deficits noted. No signs and/or symptoms were reported regarding the genitourinary system. Derm: No deficits noted. No signs and/or symptoms reported regarding the dermatologic system. Musculoskeletal: No deficits noted. No signs and/or symptoms reported regarding the musculoskeletal system. Historical: - Allergies: 23:12 Demerol; vc1 23:12 Iodinated Contrast Media - IV Dye; vc1 23:12 Sulfa (Sulfonamide Antibiotics); vc1 - Home Meds: 23:12 ropinirole oral [Active]; amlodipine oral [Active]; vc1 - PMHx: 23:12 RLS; Hypertensive disorder; Left BBB; vc1 - PSHx: 23:12 hysterectomy/tonsil; vc1 - Immunization history:: Client reports receiving the Jad \T\ Jad single-dose vaccine. Last tetanus immunization: < 5 years ago Flu vaccine is not up to date. - Social history:: Smoking status: Patient denies any tobacco usage or history of. - Family history:: not pertinent. Screenin:20 [facility] ED Fall Risk Assessment (Adult) History of falling in the last 3 months, vc1 including since admission No falls in past 3 months (0 pts) Confusion or Disorientation No (0 pts) Intoxicated or Sedated No (0 pts) Impaired Gait No (0 pts) Mobility Assist Device Used No (0 pt) Altered Elimination No (0 pt) Score/Fall Risk Level 0 - 2 = Low Risk Oriented to surroundings, Maintained a safe environment, Educated pt \T\ family on fall prevention, incl call for assistance when getting out of bed. Abuse screen: Denies threats or abuse. Nutritional screening: No deficits noted. Tuberculosis screening: No symptoms or risk factors identified. Assessment: 23:14 Reassessment: Has not taking amlodipine in 2 weeks because blood pressure was better. vc1 05/03 01:29 Neuro: No deficits noted. Level of Consciousness is awake, alert, obeys commands, kl Oriented to person, place, time, situation, Speech is normal, Facial symmetry appears normal, Pupils are PERRLA. Cardiovascular: Rhythm is sinus bradycardia with multifocal PVCs. Respiratory: No deficits noted. GI: No signs and/or symptoms were reported involving the gastrointestinal system. Vital Signs: 05/02 23:05 BP 192 / 63; Pulse 66; Resp 14; Pulse Ox 99% ; vc1 23:33 BP 186 / 62; Pulse 53; Resp 16; Pulse Ox 98% ; kl 23:59 BP 182 / 74; kl 05/03 01:18 BP 177 / 68; Pulse 57; Resp 18; Pulse Ox 100% on R/A; ll3 02:00 BP 145 / 55; Pulse 55; Resp 14; Pulse Ox 99% on R/A; Pain 0/10; ll3 02:00 Pain Scale: Adult ll3 Apex Coma Score: 02:10 Eye Response: spontaneous(4). Motor Response: obeys commands(6). Verbal Response: sp4 oriented(5). Total: 15. ED Course: 05/02 22:48 Patient arrived in ED. ja2 22:55 Omid Ferrell MD is Attending Physician. sp4 23:12 Triage completed. vc1 23:15 Arm band placed on left wrist. vc1 23:15 Inserted saline lock: 20 gauge in right antecubital area, using aseptic technique. kl Blood collected. 23:20 Patient has correct armband on for positive identification. Placed in gown. Bed in low vc1 position. Call light in reach. Client placed on continuous cardiac and pulse oximetry monitoring. NIBP monitoring applied. 23:32 EKG completed in triage. Results shown to MD. kl 23:40 Basic Metabolic Panel Sent. kl 23:40 CBC with Diff Sent. kl 23:40 LFT's Sent. kl 23:40 NT PRO-BNP Sent. kl 23:40 PT-INR Sent. kl 23:40 Troponin HS Sent. kl 23:57 Urine W/Microscopic (UAM) Sent. kl 05/03 00:28 CT Head C Spine In Process Unspecified. EDMS 02:18 Provided Education on: medication administration and prescription.. pf1 02:18 No provider procedures requiring assistance completed. IV discontinued, intact, pf1 bleeding controlled, No redness/swelling at site. Pressure dressing applied. Administered Medications: 05/02 23:40 Drug: morphine IVP or IV 4 mg Route: IVP; Infused Over: 4 mins; Site: right antecubital; 05/03 00:40 Follow up: Response: No adverse reaction; Marked relief of symptoms; Pain is decreased pf1 05/02 23:45 Drug: metoCLOPramide IVP 10 mg Route: IVP; Site: right antecubital; 05/03 00:40 Follow up: Response: No adverse reaction; Marked relief of symptoms; Pain is decreased pf1 05/02 23:57 Drug: cloNIDine PO 0.1 mg Route: PO; 05/03 00:50 Follow up: Response: No adverse reaction; Marked relief of symptoms; Blood pressure is pf1 lowered 05/02 23:58 Drug: Ketorolac IVP 15 mg Route: IVP; Site: right antecubital; 07 00:40 Follow up: Response: No adverse reaction; Marked relief of symptoms; Pain is decreased pf1 00:57 Not Given (Patient Refused): diphenhydrAMINE IVP 25 mg IVP once kl Medication: 02:19 VIS not applicable for this client. pf1 Outcome: 01:58 Discharge ordered by . sp4 02:18 Discharged to home ambulatory, with family. pf1 02:18 Condition: improved 02:18 Discharge instructions given to patient, family, Instructed on discharge instructions, follow up and referral plans. Demonstrated understanding of instructions, follow-up care, medications, Prescriptions given X 1. 02:25 Patient left the ED. ll3 Signatures: Dispatcher [employer] EDMS Gregoria Mata RN RN kl Alexander, Jessica ja2 Loubet, Lynsea, RN RN ll3 Belen Joseph RN RN vc1 Finley, Pamala, RN RN pf1 Omid Ferrell MD MD sp4 Corrections: (The following items were deleted from the chart) 05/02 23:58 23:57 diphenhydrAMINE IVP 25 mg IVP in right antecubital [facility]
[2023-05-03 03:17] VITALS: BP 145/55; O2SAT 99
--- NOTE | 2023-05-03 14:21 | RAD REPORT ---
EXAM DESCRIPTION: CT - Head C Spine Mpr Wo Con - 05/03/2023 5:09 am CLINICAL HISTORY: The patient is 83 years old and is Female; head and neck pain TECHNIQUE: Axial computed tomography images of the head/brain and cervical spine without intravenous contrast. Sagittal and coronal reformatted images were created and reviewed. This CT exam was pe rformed using one or more of the following dose reduction techniques: automated exposure control, a djustment of the mA and/or kV according to patient size, and/or use of iterative reconstruction techn ique. COMPARISON: No relevant prior studies available. FINDINGS: BRAIN: There is diffuse cerebral atrophy present, consistent with this patient's age. There is patchy hypoattenuation of the deep white matter which is non-specific, but most likely owing to chronic small vessel ischemic change in a patient of this age group. No intracranial hemorrhage , mass effect, midline shift is seen. There are no extra-axial fluid collections. The mc-white diff erentiation is maintained. There is no cerebral edema. VENTRICLES: Unremarkable. No ventriculomegaly. SKULL: No acute fracture. SINUSES: Unremarkable as visualized. No acute sinusitis. MASTOID AIR CELLS: Unremarkable as visualized. No mastoid effusion. VERTEBRAE: The vertebral body heights and alignment are maintained. No acute fracture. DISCS/SPINAL CANAL/NEURAL FORAMINA: There is multi-level intervertebral disc height loss. There a re disc-osteophyte complexes at several levels, with associated mild spinal canal narrowing. There is also facet hypertrophy and uncovertebral joint osteophytosis, with associated multilevel neural fora clarke narrowing. SOFT TISSUES: The soft tissues are normal. LUNG APICES: Unremarkable as visualized. IMPRESSION: 1. No acute intracranial findings. 2. Moderate spondylosis of the cervical spine without acute findings. Electronically signed by: Mayda Muñiz MD 05/03/2023 1:12 AM CDT Due to temporary technical issues with the PACS/Fluency reporting system, reports are being signed by the in house radiologist without review as a courtesy to ensure prompt reporting. The interpreting r adiologist is fully responsible for the content of the report.
--- NOTE | 2023-05-03 17:02 | EKG ---
Test Date: 2023-05-02 Test Time: 23:26:04 [employer] Consultant: FRANKLIN MEASUREMENT RESULTS: Intervals: Rate: 54 LA: 146 QRSD: 142 QT: 514 QTc: 487 [place]: P: 61 LA: 146 QRS: -27 T: -6 INTERPRETIVE STATEMENTS: Sinus bradycardia Left bundle branch block Abnormal ECG Compared to ECG 04/08/2017 08:37:57 Left-axis deviation no longer present Electronically Signed On 05-03-23 17:02:20 CDT by Sharif Dorman
== END 2023-05-03 02:25 | disposition home or self-care (01) ==
LOC: ER 22:44
DX: G44.209 Tension-type headache, unspecified, not intractable (principal); I10 Essential (primary) hypertension; M54.2 Cervicalgia; Z88.2 Allergy status to sulfonamides; Z88.5 Allergy status to narcotic agent; Z91.041 Radiographic dye allergy status
CPT/HCPCS: 93005; 85025; 81001; 80048; 36415; 85610; 80076; 84484; 83880; 70450; 72125; J2765; J1200